=== PATIENT | female | born 1970 | race Caucasian/White ===

== ENCOUNTER → 2017-04-29 | Outpatient (CLI) | payer SELFPAY ==
[2016-09-19 08:38] VITALS: BMI 29.1
[~2017-04-29] MED LIST: ALUM PO; ATOR20TA22 PO; ATOR40TA24 PO; BACDS PO; CAR200 PO; CARB-82 PO; CARB-91 PO; CARB400T8 PO; CIPR-214 PO; CYC10 PO; CYCL10TA29 PO; DIA10 PO; DIPH-1 PO; DIPHENHYDR PO; DOCU-416 PO; ESCI10TA8 PO; ESTR0.9T14 PO; ESTR1.2525 PO; FENO145T36 PO; FLU45SYR25 IM ONLY; FLU60SYR30 IM ONLY; FLUC100T35 PO; FLUD0.1T12 PO; FOLI-68 PO; FOLTX PO; GABA-547 PO; GABA-583 PO; HYDR-3629 PO; HYDR-385 PO; HYDR2TAB42 PO; IBU600 PO; KET10 PO; KETO10TA PO; LEVO1CAP3 PO; LID5T TP; LIDOCAINE PO; LOR1 PO; LOR5 PO; MAGN100T PO; MAGN400T10 PO; MAGN400T36 PO; MAGN500C10 PO; METH4TAB66 PO; METO-231 PO; METO-253 PO; METO-257 PO; METO-733 PO; METO25TA23 PO; NEUROTIN; NYST100016 PO; NYST100040 PO; OMEP-114 PO; ONDA4TAB PO; ONDA4TAB97 PO; OXYC-373 PO; OXYC-865 PO; OXYC1TAB54 PO; PER PO; PHENA100 PO; POLY17PO25 PO; POTA-23 PO; POTA10CA40 PO; POTA20PA10 PO; POTA20TA85 PO; POTA20TA94 PO; PRE50 PO; PRED-314 PO; PRED20TA6 PO; PROM-110 PO; SODCTAB PO; VAR05PT PO; [UNRECOGNIZED DRUG - CODE] PO; [UNRECOGNIZED DRUG - OTHER] PO; [UNRECOGNIZED DRUG - REMARK]; [UNRECOGNIZED DRUG - REMARK]; [UNRECOGNIZED DRUG - REMARK]
[2017-04-29 11:54] LABS: PLATELET COUNT, AUTOMATED 327 K/uL (150-450)
--- NOTE | 2017-04-29 12:37 | RADIOLOGY IMAGING REPORT ---
FACILITY: [facility] - [place] PATIENT NAME: Viktoria Griffin : 1970 MR: [id number] V: [id number] EXAM DATE: ORDERING PHYSICIAN: LINA ROGERS TECHNOLOGIST: Location: [facility] Patient: Viktoria Griffin : 1970 Visit/Account:[id number] Date of Sevice: 04/29/2017 Exam type: KUB SINGLE VIEW ABDOMEN History: constipation Comparison: 09/18/2016. Findings: The bowel gas pattern is notable for mild constipation with stool noted in the descending colon. No definite bowel obstruction or fecal impaction. The osseous structures demonstrate postoperative changes from fusion of L4-S1 without hardware compli cation. Calcifications in the deep pelvis may represent phleboliths. IMPRESSION: 1. Mild constipation but no definite bowel obstruction or free air. Report Dictated By: Neno Colin MD at 04/29/2017 12:32 PM Report E-Signed By: Neno Colin MD at 04/29/2017 12:34 PM WSN:[id number]
== END ==
LOC: LAB 11:27
PROVIDERS: ATTEND Internal Medicine
DX: K59.00 Constipation, unspecified (principal); E87.1 Hypo-osmolality and hyponatremia; E83.42 Hypomagnesemia; E87.6 Hypokalemia; R29.898 Other symptoms and signs involving the musculoskeletal system; R79.89 Other specified abnormal findings of blood chemistry
CPT/HCPCS: 36415; 74018; 82040; 82247; 82310; 82374; 82435; 82565; 82728; 82947; 83540; 83550; 83735; 84075; 84132; 84155; 84295; 84443; 84450; 84460; 84520; 85025; 85651; 86140

== ENCOUNTER 2017-08-04 05:42 | Emergency (ER) | payer SELFPAY ==
[2016-09-19 08:38] VITALS: Wt 69.9 kg
--- NOTE | 2017-08-04 05:46 | ER Report ---
History and Physical Time Seen By MD: 05:45 (BOYD SINHA DO) HPI/ROS CHIEF COMPLAINT: Abdominal bloating HISTORY OF PRESENT ILLNESS: 47-year-old female with a known history of gastroparesis and chronic GI problems ate out last night. Patient states she had coucous and a salad which she is normally advised not to have by her GI specialist. Patient notes abdominal bloating and cramping pain radiating to both flanks throughout the night. She's been unable to sleep. She did have some vomiting. She did Zofran and the vomiting has resolved for several hours, but her abdominal pain and bloating continued to worsen. She has history of multiple abdominal surgeries. She's never had a bowel obstruction before. REVIEW OF SYSTEMS: Respiratory: No cough, no dyspnea. Cardiovascular: No chest pain, no palpitations. Gastrointestinal: As above Musculoskeletal: No back pain. (BOYD SINHA DO) Allergies: Coded Allergies: codeine (Verified Adverse Reaction, Severe, VIOLENTLY ILL, 08/04/17) Home Meds Active Scripts Ondansetron Hcl (ZOFRAN) 4 Mg Tablet, 4 MG PO Q8H for Nausea, #15 TAB 0 Refills Prov:JEET ALVARES MD 08/04/17 Dicyclomine Hcl (DICYCLOMINE HCL) 20 Mg Tablet, 20 MG PO QID for cramping, #30 TAB 0 Refills Prov:JEET ALVARES MD 08/04/17 Gabapentin (GABAPENTIN) 100 Mg Capsule, 100 MG PO BID, #540 CAPSULE 4 Refills 1 twice a day x 3 days 2 twice a day x 3 days Than 3 twice a day Prov:LINA ROGERS MD 05/13/17 Polyethylene Glycol 3350 (MIRALAX) 17 Gm Powd.pack, 17 GM PO QDAY, #30 PKT 3 Refills Prov:LINA ROGERS MD 04/29/17 Sodium Chloride (SODIUM CHLORIDE) 1 Gm Tab, 2 GM PO QDAY, #60 TAB 6 Refills Prov:LINA ROGERS MD 04/29/17 Potassium Chloride (POTASSIUM CHLORIDE) 10 Meq Capsule.er, 10 MEQ PO QODAY, #30 TAB 3 Refills Prov:LINA ROGERS MD 04/29/17 Magnesium Oxide (MAGNESIUM) 500 Mg Capsule, 1 CAP PO BID, #60 CAPSULE 3 Refills Prov:LINA ROGERS MD 04/29/17 Promethazine Hcl (PROMETHAZINE HCL) 25 Mg Tablet, 25 MG PO Q8H Y for nausea, # 30 TAB Prov:LINA ROGERS MD 04/29/17 Reported Medications Docusate Sodium (COLACE) 100 Mg Capsule, 100 MG PO, CAPSULE 08/04/17 Omeprazole (PRILOSEC) 20 Mg Capsule.dr, 1 TAB PO BID TAKE ONE TABLET BY MOUTH TWICE A DAY 10/05/13 Discontinued Scripts Carbamazepine (CARBAMAZEPINE) 200 Mg Tablet, 200 MG PO QDAY, #90 TAB 6 Refills Prov:LINA ROGERS MD 04/29/17 Folic Acid/Cyanocob/Pyridoxine (FOLBEE TABLET) 1 Each Tab, 1 EACH PO QDAY, #30 TAB Prov:JIN COLEMAN MD 09/21/16 Past Medical/Surgical History Past Medical History Neurologic: Reports hx of: other neurologic history (trigeminal neuralgia) Cardiovascular: Reports hx of: hyperlipidemia hypertension hypertriglyceridemia Gastrointestinal: Reports hx of: GERD other GI history (stomach ulcers 09/2013) Past Surgical History HEENT: Reports hx of: tonsillectomy (1975) other throat surgery (adenoidectomy 1975) Gastrointestinal: Reports hx of: appendectomy (1991) cholecystectomy (1999) hernia repair (1997) Gynecologic: Reports hx of: hysterectomy (2003-for uterine prolapse and ovarian cysts) Breast: Reports hx of: other breast surgery (breast cancer) Musculoskeletal: Reports hx of: spinal surgery (lumbar fusion 2010) (BOYD SINHA DO) Reviewed Nurses Notes: Yes Old Medical Records Reviewed: Yes (BOYD SINHA DO) Hx Smoking: Yes (4-5CIGS/DAY FOR 30 YRS) Smoking Status: Current: Every Day Smoker, Light Tobacco Smoker Hx Substance Use Disorder: No Hx Alcohol Use: Yes (Rare) (BOYD SINHA DO) Constitutional Vital Sign - Last 24 Hours 08/04/17 08/04/17 08/04/17 08/04/17 05:47 05:50 05:56 06:00 Temp 98.0 Pulse 94 Resp 18 B/P (MAP) 146/120 146/120 (129) 141/110 (120) 140/101 (114) Pulse Ox 90 O2 Delivery Room Air 6/08/04/17 08/04/17 08/04/17 06:12 06:30 06:42 07:11 Pulse 85 80 B/P (MAP) 144/102 (116) 142/92 (109) Pulse Ox 91 94 08/04/17 08/04/17 08/04/17 08/04/17 07:12 07:17 07:22 07:27 Pulse 82 84 81 76 Pulse Ox 95 95 87 93 08/04/17 08/04/17 08/04/17 08/04/17 07:30 07:32 07:37 07:42 Pulse 77 84 82 B/P (MAP) 134/99 (111) Pulse Ox 93 93 96 08/04/17 08/04/17 08/04/17 07:46 07:47 07:52 Pulse ? B/P (MAP) 145/101 (116) (JEET ALVARES MD) Physical Exam General Appearance: The patient is alert, has no immediate need for airway protection and no current signs of toxicity. Vital signs stable, afebrile, pulse ox normal, moderate distress HEENT: Pupils equal and round no injection. Oropharynx without redness or exudate, mucous. Membranes are moist Respiratory: Chest is non tender, lungs are clear to auscultation. Cardiac: regular rate and rhythm Gastrointestinal: Abdomen is firm, mildly distended and non tender, no masses, bowel sounds normal. Musculoskeletal: Neck: Neck is supple and non tender. Extremities have full range of motion and are non tender. Skin: No rashes or lesions. DIFFERENTIAL DIAGNOSIS: After history and physical exam differential diagnosis was considered for abdominal pain including but not limited to appendicitis, cholecystitis, gastritis, bowel obstruction, gastroparesis, constipation and urinary tract infection. (BOYD SINHA DO) Medical Decision Making Data Points Result Diagram: 08/04/17 0556 08/04/17 0556 Laboratory Hematology Test 08/04/17 05:49 08/04/17 05:56 Urine Color Yellow Urine Clarity Clear Urine pH 7.0 pH (4.8-9.5) Urine Specific Nickerson 1.014 Urine Protein Negative mg/dL (NEGATIVE) Urine Glucose (UA) Negative mg/dL (NEGATIVE) Urine Ketones Negative mg/dL (NEGATIVE) Urine Blood Negative (NEGATIVE) Urine Nitrite Negative (NEGATIVE) Urine Bilirubin Negative (NEGATIVE) Urine Urobilinogen Negative mg/dL (0.2-1.9) Urine Leukocyte Esterase Trace (NEGATIVE) Urine RBC 1 /HPF (0-2/HPF) Urine WBC 18 /HPF (0-5/HPF) Urine Squamous Epithelial Cells Many /LPF (</=FEW) Urine Bacteria Moderate /HPF (NONE-FEW) Urine Mucus None /HPF (NONE-FEW) Red Blood Count 5.25 M/uL (4.17-5.56) Mean Corpuscular Volume 90.2 fL (80.0-96.0) Mean Corpuscular Hemoglobin 30.9 pg (26.0-33.0) Mean Corpuscular Hemoglobin Concent 34.3 g/dL (32.0-36.0) Red Cell Distribution Width 19.3 % (11.5-14.5) Mean Platelet Volume 8.5 fL (7.2-11.1) Neutrophils (%) (Auto) 65.8 % (39.4-72.5) Lymphocytes (%) (Auto) 26.2 % (17.6-49.6) Monocytes (%) (Auto) 5.3 % (4.1-12.4) Eosinophils (%) (Auto) 1.4 % (0.4-6.7) Basophils (%) (Auto) 1.3 % (0.3-1.4) Nucleated RBC Relative Count (auto) 0.1 /100WBC Neutrophils # (Auto) 5.7 K/uL (2.0-7.4) Lymphocytes # (Auto) 2.3 K/uL (1.3-3.6) Monocytes # (Auto) 0.5 K/uL (0.3-1.0) Eosinophils # (Auto) 0.1 K/uL (0.0-0.5) Basophils # (Auto) 0.1 K/uL (0.0-0.1) Nucleated RBC Absolute Count (auto) 0.01 K/uL Peripheral Blood Smear No Y/N Sodium Level 140 mmol/L (137-145) Potassium Level 3.5 mmol/L (3.5-5.0) Chloride Level 97 mmol/L (98-107) Carbon Dioxide Level 31 mmol/L (22-31) Blood Urea Nitrogen 9 mg/dl (7-18) Creatinine 0.60 mg/dl (0.52-1.04) Glomerular Filtration Rate Calc > 60.0 Random Glucose 105 mg/dl (75-110) Calcium Level 9.4 mg/dl (8.4-10.2) Total Bilirubin 0.9 mg/dl (0.2-1.3) Aspartate Amino Transf (AST/SGOT) 73 U/L (0-35) Alanine Aminotransferase (ALT/SGPT) 50 U/L (0-56) Alkaline Phosphatase 186 U/L (0-126) Total Protein 8.4 g/dl (6.3-8.2) Albumin 4.3 g/dl (3.5-5.0) Amylase Level 73 U/L (0-110) Lipase 23 U/L (23-300) Chemistry Test 08/04/17 05:49 08/04/17 05:56 Urine Color Yellow Urine Clarity Clear Urine pH 7.0 pH (4.8-9.5) Urine Specific Nickerson 1.014 Urine Protein Negative mg/dL (NEGATIVE) Urine Glucose (UA) Negative mg/dL (NEGATIVE) Urine Ketones Negative mg/dL (NEGATIVE) Urine Blood Negative (NEGATIVE) Urine Nitrite Negative (NEGATIVE) Urine Bilirubin Negative (NEGATIVE) Urine Urobilinogen Negative mg/dL (0.2-1.9) Urine Leukocyte Esterase Trace (NEGATIVE) Urine RBC 1 /HPF (0-2/HPF) Urine WBC 18 /HPF (0-5/HPF) Urine Squamous Epithelial Cells Many /LPF (</=FEW) Urine Bacteria Moderate /HPF (NONE-FEW) Urine Mucus None /HPF (NONE-FEW) White Blood Count 8.7 k/uL (4.5-11.0) Red Blood Count 5.25 M/uL (4.17-5.56) Hemoglobin 16.2 g/dL (12.0-16.0) Hematocrit 47.3 % (34.0-47.0) Mean Corpuscular Volume 90.2 fL (80.0-96.0) Mean Corpuscular Hemoglobin 30.9 pg (26.0-33.0) Mean Corpuscular Hemoglobin Concent 34.3 g/dL (32.0-36.0) Red Cell Distribution Width 19.3 % (11.5-14.5) Platelet Count 165 K/uL (150-450) Mean Platelet Volume 8.5 fL (7.2-11.1) Neutrophils (%) (Auto) 65.8 % (39.4-72.5) Lymphocytes (%) (Auto) 26.2 % (17.6-49.6) Monocytes (%) (Auto) 5.3 % (4.1-12.4) Eosinophils (%) (Auto) 1.4 % (0.4-6.7) Basophils (%) (Auto) 1.3 % (0.3-1.4) Nucleated RBC Relative Count (auto) 0.1 /100WBC Neutrophils # (Auto) 5.7 K/uL (2.0-7.4) Lymphocytes # (Auto) 2.3 K/uL (1.3-3.6) Monocytes # (Auto) 0.5 K/uL (0.3-1.0) Eosinophils # (Auto) 0.1 K/uL (0.0-0.5) Basophils # (Auto) 0.1 K/uL (0.0-0.1) Nucleated RBC Absolute Count (auto) 0.01 K/uL Peripheral Blood Smear No Y/N Glomerular Filtration Rate Calc > 60.0 Calcium Level 9.4 mg/dl (8.4-10.2) Total Bilirubin 0.9 mg/dl (0.2-1.3) Aspartate Amino Transf (AST/SGOT) 73 U/L (0-35) Alanine Aminotransferase (ALT/SGPT) 50 U/L (0-56) Alkaline Phosphatase 186 U/L (0-126) Total Protein 8.4 g/dl (6.3-8.2) Albumin 4.3 g/dl (3.5-5.0) Amylase Level 73 U/L (0-110) Lipase 23 U/L (23-300) Urinalysis Test 08/04/17 05:49 Urine Color Yellow Urine Clarity Clear Urine pH 7.0 pH (4.8-9.5) Urine Specific Nickerson 1.014 Urine Protein Negative mg/dL (NEGATIVE) Urine Glucose (UA) Negative mg/dL (NEGATIVE) Urine Ketones Negative mg/dL (NEGATIVE) Urine Blood Negative (NEGATIVE) Urine Nitrite Negative (NEGATIVE) Urine Bilirubin Negative (NEGATIVE) Urine Urobilinogen Negative mg/dL (0.2-1.9) Urine Leukocyte Esterase Trace (NEGATIVE) Urine RBC 1 /HPF (0-2/HPF) Urine WBC 18 /HPF (0-5/HPF) Urine Squamous Epithelial Cells Many /LPF (</=FEW) Urine Bacteria Moderate /HPF (NONE-FEW) Urine Mucus None /HPF (NONE-FEW) (JEET ALVARES MD) EKG/Imaging Imaging X-ray: Abdomen three-view was obtained. I viewed the images myself on the PACS system. My interpretation of the images is: Clear lung spangler, no free air under the diaphragm, dilated loops of small bowel in left abdomen with air- fluid levels. The radiologist interpretation had no clinically significant variation from this interpretation. Results: CT scan of the [head] was obtained. The results of the study are [normal]. The study was read by the radiologist. I viewed the images myself on the PACS system. (BOYD SINHA DO) Imaging FACILITY: [facility] PATIENT NAME: Viktoria Griffin : 1970 MR: [id number] V: [id number] EXAM DATE: ORDERING PHYSICIAN: BOYD SINHA TECHNOLOGIST: Location: [facility] Patient: Viktoria Griffin : 1970 Visit/Account:[id number] Date of Sevice: 08/04/2017 ABDOMEN/PELVIS WITH CONTRAST HISTORY: abd pain ? sbo on plain films TECHNIQUE: CT abdomen and pelvis 75 cc of Isovue 370 IV. One of the following dose optimization techniques was utilized in the performance of this exam: automated exposure control; adjustment of the mA and/or kV according to the patient's size; or use of an iterative reconstruction technique. Specific details can be referenced in the facility's radiology CT exam operational policy. COMPARISON: CT abdomen and pelvis 04/29/2012. FINDINGS: Liver/gallbladder: Liver demonstrates normal enhancement. There are changes from a cholecystectomy. Spleen: Normal. Adrenals: Normal. Pancreas: Normal enhancement without evidence of mass. Kidneys/: The right and left kidney demonstrate normal enhancement without evidence of hydronephrosis or mass. Both ureters are normal. Pelvis: Urinary bladder is normal. There are changes from a hysterectomy. GI: Nondilated loops of small bowel are seen. There are several fluid-filled loops of small bowel in the left upper quadrant, with gas that was seen on the prior abdomen radiograph, however these aren't not pathologically distended. Colon is normal. Stomach is normal. Vessels/spaces/nodes: Negative. Bones/soft tissues: Surgical changes in the lumbar spine are seen. Visualized lung bases: Patchy groundglass attenuation is seen in both lung bases. IMPRESSION: 1. No evidence of small bowel obstruction. There are several loops of small bowel with fluid and air, which are not pathologically distended. 2. Patchy groundglass densities both lung bases. Differential diagnosis includes atelectasis and pneumonia. 3. Postoperative changes lumbar spine and changes from hysterectomy and cholecystectomy. Report Dictated By: Jose Skelton at 08/04/2017 7:22 AM Report E-Signed By: Jose Skelton at 08/04/2017 7:28 AM WSN:[id number] (JEET ALVARES MD) ED Course/Re-evaluation Clinical Indication for ER IV: Hydration, IV Access ED Course Patient was admitted to an examination room. H&P was done. The differential diagnoses was considered. On clinical examination. Patient has a distended abdomen with increasing pain since last evening. Patient has history of gastroparesis and chronic nausea. Her most recent internal medicine note from April of this year was very informative. Patient had diagnostic studies a three -way of the abdomen has some dilated loops of small bowel, suspicious for obstruction. A CT scan with contrast of the abdomen and pelvis was ordered. Her was turned over to Dr. Alvares at shift change. (BOYD SINHA DO) Re-evaluation 08/04/2017 7:27:05 am patient returned from CT scan results are still pending. She is complaining of some increased abdominal discomfort and nausea. I will re- dose fentanyl and Zofran at this time. Decision to Disposition Date: Aug 04, 2017 Decision to Disposition Time: 08:00 Turned Over I accepted care of patient from Dr. Boyd Sinha at 7 AM; please note in the history where Dr. Sinha is describing what the patient ate last night she had cous cous (not 2 screws) and a salad. (JEET ALVARES MD) Depart Departure Latest Vital Signs Vital Signs Date Time Temp Pulse Resp B/P (MAP) Pulse Ox O2 Delivery O2 Flow Rate FiO2 08/04/17 07:52 ??? 08/04/17 07:46 145/101 (116) 08/04/17 07:42 96 08/04/17 05:47 98.0 18 Room Air (JEET ALVARES MD) Impression: Primary Impression: Abdominal pain Condition: Improved Disposition: HOME OR SELF-CARE Referrals: LINA ROGERS MD (PCP) 2 Days if symptoms persist New Scripts Ondansetron Hcl (ZOFRAN) 4 Mg Tablet 4 MG PO Q8H for Nausea, #15 TAB 0 Refills Prov: JEET ALVARES MD 08/04/17 Dicyclomine Hcl (DICYCLOMINE HCL) 20 Mg Tablet 20 MG PO QID for cramping, #30 TAB 0 Refills Prov: JEET ALVARES MD 08/04/17 Patient Instructions: Abdominal Pain (ED) Additional Instructions: Take all your outpatient medications as directed. He should follow-up with her primary care physician in the next 24-48 hours if symptoms persist. You should return to the emergency department immediately if symptoms seem to be worsening or he develop fever or intractable vomiting or abdominal pain. You have a urine culture that is pending at this time. If the culture is positive we will call you to potentially start you on antibiotics for urinary tract infection. Problem Qualifiers Primary Impression: Abdominal pain Abdominal location: generalized Qualified Codes: R10.84 - Generalized abdominal pain BOYD SINHA DO Aug 04, 2017 05:46 JEET ALVARES MD Aug 04, 2017 07:03
[2017-08-04] MEDS ORDERED: fentaNYL CITR 100 MCG/2 ML AMP IVP ONE ×2 (05:55→07:30)
[2017-08-04] MEDS ORDERED: ONDANSETRON 4 MG/2 ML VIAL IVP ONE ×2 (05:55→07:30)
[2017-08-04] MEDS ORDERED: DOCU-416 PO (06:04)
[2017-08-04 06:05] LABS: PLATELET COUNT, AUTOMATED 165 K/uL (150-450)
--- NOTE | 2017-08-04 06:47 | RADIOLOGY IMAGING REPORT ---
FACILITY: [facility] PATIENT NAME: Viktoria Griffin : 1970 MR: [id number] V: [id number] EXAM DATE: ORDERING PHYSICIAN: BEN ENRIQUEZ TECHNOLOGIST: [facility] Patient: Viktoria Griffin : 1970 Visit/Account:[id number] Date of Sevice: 08/04/2017 ACUTE ABDOMEN SERIES 3 VIEW Indication: ABD PAIN Comparison: None. Findings: CHEST: Lungs are clear. Heart size and pulmonary vasculature are normal. ABDOMEN: Mildly dilated loops of small bowel are seen, with multiple air-fluid levels. There is no fr ee air. There are postoperative changes with lumbar spine hardware. IMPRESSION: 1. Clear lungs. 2. Findings consistent with mild small bowel obstruction. Report Dictated By: Jose Skelton at 08/04/2017 6:42 AM Report E-Signed By: Jose Skelton at 08/04/2017 6:43 AM WSN:[id number]
[2017-08-04] MEDS ORDERED: IOPAMIDOL 76% 75 ML INFUS BTL 75 ML ONE (06:53)
--- NOTE | 2017-08-04 07:32 | RADIOLOGY IMAGING REPORT ---
FACILITY: [facility] - [place] [place] PATIENT NAME: Viktoria Griffin : 1970 MR: [id number] V: [id number] EXAM DATE: ORDERING PHYSICIAN: BNE ENRIQUEZ TECHNOLOGIST: Location: [facility] Patient: Viktoria Griffin : 1970 Visit/Account:[id number] Date of Sevice: 08/04/2017 ABDOMEN/PELVIS WITH CONTRAST HISTORY: abd pain ? sbo on plain films TECHNIQUE: CT abdomen and pelvis 75 cc of Isovue 370 IV. One of the following dose optimization rudy hniques was utilized in the performance of this exam: automated exposure control; adjustment of the m A and/or kV according to the patient's size; or use of an iterative reconstruction technique. Specif ic details can be referenced in the facility's radiology CT exam operational policy. COMPARISON: CT abdomen and pelvis 04/29/2012. FINDINGS: Liver/gallbladder: Liver demonstrates normal enhancement. There are changes from a cholecystectomy. Spleen: Normal. Adrenals: Normal. Pancreas: Normal enhancement without evidence of mass. Kidneys/: The right and left kidney demonstrate normal enhancement without evidence of hydronephro sis or mass. Both ureters are normal. Pelvis: Urinary bladder is normal. There are changes from a hysterectomy. GI: Nondilated loops of small bowel are seen. There are several fluid-filled loops of small bowel in the left upper quadrant, with gas that was seen on the prior abdomen radiograph, however these aren' t not pathologically distended. Colon is normal. Stomach is normal. Vessels/spaces/nodes: Negative. Bones/soft tissues: Surgical changes in the lumbar spine are seen. Visualized lung bases: Patchy groundglass attenuation is seen in both lung bases. IMPRESSION: 1. No evidence of small bowel obstruction. There are several loops of small bowel with fluid and air, which are not pathologically distended. 2. Patchy groundglass densities both lung bases. Differential diagnosis includes atelectasis and pneu monia. 3. Postoperative changes lumbar spine and changes from hysterectomy and cholecystectomy. Report Dictated By: Jose Skelton at 08/04/2017 7:22 AM Report E-Signed By: Jose Skelton at 08/04/2017 7:28 AM WSN:[id number]
[2017-08-04] MEDS ORDERED: ONDA4TAB97 PO (07:40)
[2017-08-04] MEDS ORDERED: DICY20TA70 PO (07:40)
[2017-08-04 07:46] VITALS: BP 145/101
== END 2017-08-04 07:57 | disposition home or self-care (01) ==
LOC: ER 05:47
DX: R10.84 Generalized abdominal pain (principal); F17.210 Nicotine dependence, cigarettes, uncomplicated
CPT/HCPCS: 74022; 74177; 81001; 82150; 83690; 85025; 87077; 87088; 87186; 96374; 96375; 96376; 99284; J2405; J3010; Q9967; 82040; 82247; 82310; 82374; 82435; 82565; 82947; 84075; 84132; 84155; 84295; 84450; 84460; 84520

== ENCOUNTER → 2017-09-09 | Outpatient (CLI) | payer OTHER ==
[2016-09-19 08:38] VITALS: BMI 29.1
[~2017-09-09] MED LIST changes: +DICY20TA70 PO; +GABA-549 PO
--- NOTE | 2017-09-09 15:09 | RADIOLOGY IMAGING REPORT ---
FACILITY: [facility] [place] PATIENT NAME: Viktoria Griffin : 1970 MR: [id number] V: [id number] EXAM DATE: ORDERING PHYSICIAN: LINA ROGERS TECHNOLOGIST: Location: [facility] [place] Patient: Viktoria Griffin : 1970 Visit/Account:[id number] Date of Sevice: 09/09/2017 EXAMINATION: MRI thoracic spine without IV contrast MRI thoracic spine with IV contrast HISTORY: Weakness of both lower extremities, thoracic spine pain, chronic inflammatory demyelinatin g polyneuropathy. COMPARISON: Thoracic spine radiographs from 05/30/2016. TECHNIQUE: Multi-planar, multi-sequence thoracic spine MRI was performed without and after IV contra st. CONTRAST: 15 mL of IV MultiHance gadolinium. FINDINGS: Alignment: Negative. Vertebral marrow signal: Mild degenerative endplate changes and a few scattered small Schmorl's nodes . Paravertebral soft tissues: Negative. Thoracic cord: No focal cord signal abnormality or lesion. Conus: Negative, terminates at the L1 level. Enhancement: No abnormal enhancement. Disc spaces: T3-4: Minimal disc bulge without significant central canal or foraminal stenosis. T6-7: Small central disc protrusion. No significant central canal or foraminal stenosis. T12-L1: Mild concentric disc bulge without significant central canal or foraminal stenosis. IMPRESSION: 1. No thoracic cord lesion or abnormal enhancement. 2. 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 Report Dictated By: Nany Sagastume MD at 09/09/2017 3:00 PM Report E-Signed By: Nany Sagastume MD at 09/09/2017 3:05 PM WSN:[id number]
--- NOTE | 2017-09-09 16:13 | RADIOLOGY IMAGING REPORT ---
FACILITY: [facility] - [place] PATIENT NAME: Viktoria Griffin : 1970 MR: [id number] V: [id number] EXAM DATE: ORDERING PHYSICIAN: LINA ROGERS TECHNOLOGIST: Location: [facility] Patient: Viktoria Griffin : 1970 Visit/Account:[id number] Date of Sevice: 09/09/2017 EXAMINATION: C SPINE W W/O CONTRAST INDICATION: Lower extremity weakness COMPARISON: None available TECHNIQUE: Multiplane MR imaging was performed through the cervical spine without and with contrast. 15 ml multihance injected. FINDINGS: Vertebral body height: Normal Cord signal: Normal Marrow signal: Mild degenerative edema surrounds the C6-7 disc space. Prevertebral and paraspinal soft tissues: Normal Enhancement: Degenerative marrow enhancement surrounding the C6-7 disc space. Degenerative right C2-3 facet joint synovial enhancement. C2-3: Normal C3-4: Minimal disc bulge, no canal narrowing, mild bilateral foraminal narrowing. C4-5: Minimal disc bulge, no canal narrowing, mild bilateral foraminal narrowing. C5-6: Small disc protrusion contacts the anterior aspect of the cord with resultant slight cord defor mity. Mild to moderate canal narrowing. Moderate bilateral foraminal narrowing. C6-7: Moderate disc space degeneration, small disc osteophyte complex, moderate canal narrowing, apolinar re right and moderate to severe left foraminal narrowing. C7-T1: Normal IMPRESSION: 1. No acute finding. 2. No cord signal abnormality or cord pathologic enhancement. 3. Mild to moderate C5-6 and moderate C6-7 canal narrowing. 4. Multilevel foraminal narrowing, see level by level comments above. Report Dictated By: Francis Russell MD at 09/09/2017 4:02 PM Report E-Signed By: Francis Russell MD at 09/09/2017 4:08 PM WSN:[email or web address]
== END ==
LOC: MRI 02:05
PROVIDERS: ATTEND Internal Medicine
DX: M48.02 Spinal stenosis, cervical region (principal); M51.34 Other intervertebral disc degeneration, thoracic region
CPT/HCPCS: 36415; 72156; 72157; 82040; 82247; 82310; 82374; 82435; 82565; 82947; 84075; 84132; 84155; 84295; 84450; 84460; 84520

== ENCOUNTER → 2017-09-22 | Outpatient (CLI) | payer OTHER ==
[2016-09-19 08:38] VITALS: BMI 29.1
[~2017-09-22] MED LIST changes: -POTA20PA10 PO; +POTA20PA31 PO; +SULF-198 PO
--- NOTE | 2017-09-22 16:13 | RADIOLOGY IMAGING REPORT ---
FACILITY: [facility] - [place] PATIENT NAME: Viktoria Griffin : 1970 MR: [id number] V: [id number] EXAM DATE: ORDERING PHYSICIAN: LINA ROGERS TECHNOLOGIST: Location: [facility] [place] Patient: Viktoria Griffin : 1970 Visit/Account:[id number] Date of Sevice: 09/22/2017 Exam type: ACUTE ABDOMEN SERIES 3 VIEW History: Abdomen pain and bloating Comparison: August 04, 2017. Findings: The lungs are free of acute effusions, infiltrates or edema. Cardiac silhouette is normal There are old bilateral rib fractures. Small air-fluid levels are seen in nondilated small bowel which does not appear to represent an obstr uctive gas pattern. There is no free air beneath hemidiaphragms. No gross evidence of organomegaly. There are postsurgical changes lower lumbar spine. IMPRESSION: 1. No evidence of pulmonary consolidation Nonspecific bowel gas pattern Report Dictated By: Josefa Lo MD at 09/22/2017 4:06 PM Report E-Signed By: Josefa Lo MD at 09/22/2017 4:09 PM WSN:[email or web address]
[2017-09-22 16:22] LABS: PLATELET COUNT, AUTOMATED 186 K/uL (150-450)
== END ==
LOC: LAB 15:17
PROVIDERS: ATTEND Internal Medicine
DX: R10.9 Unspecified abdominal pain (principal); B96.20 Unspecified Escherichia coli [E. coli] as the cause of diseases classified elsewhere
CPT/HCPCS: 36415; 74022; 81001; 82040; 82150; 82247; 82310; 82374; 82435; 82565; 82947; 83690; 83735; 84075; 84132; 84155; 84295; 84443; 84450; 84460; 84520; 85025; 87077; 87088; 87186

== ENCOUNTER 2017-10-03 07:28 | Day surgery (SDC) | payer OTHER ==
[2016-09-19 08:38] VITALS: BMI 29.1
[2017-10-03] MEDS ORDERED: LIDOCAINE MPF 1% 5 ML VIAL ONE (10:20)
[2017-10-03] MEDS ORDERED: NS(*) 0.9% 10 ML VIAL 0 ML ONE (10:20)
[2017-10-03 11:33] VITALS: BP 130/93
[2017-10-03 11:45] VITALS: BP 110/93
[2017-10-03 12:00] VITALS: BP 104/86
[2017-10-03 12:30] VITALS: BP 131/98
--- NOTE | 2017-10-03 16:50 | RADIOLOGY IMAGING REPORT ---
FACILITY: [facility] - [place] PATIENT NAME: Viktoria Griffin : 1970 MR: [id number] V: [id number] EXAM DATE: ORDERING PHYSICIAN: BRADY DURANT TECHNOLOGIST: Location: [facility] Patient: Viktoria Griffin : 1970 Visit/Account:[id number] Date of Sevice: 10/03/2017 EXAMINATION: Fluoroscopically guided lumbar puncture 10/03/2017 10:00 AM HISTORY: Chronic inflammatory demyelinating polyneuropathy. Sensory disturbance. Gait disturbance. COMPARISON: There is a previous spinal imaging which I reviewed prior to the procedure. FLUOROSCOPY TIME: 0.6 minutes DOSE: DAP was 76.15 uGy/m2 FINDINGS: The patient has had previous L4-S1 fusion. I initially chose the L3-4 level for access. The back was prepped with ChloraPrep. Sterile draping was applied. Fluoroscopy was utilized to myriam the skin entry and lidocaine was utilized for local anesthesia. Using intermittent fluoroscopy a ad vanced the needle down towards the interlaminar space on the left at L2-3. Although is uncertain why , I could not proceed into the spinal canal despite multiple manipulations of the needle. I then re-marked at the L1-2 level. Previous imaging had shown that this would be below the tip of t he patient's conus. Additional lidocaine was administered. A 22-gauge spinal needle was then easily advanced through the interlaminar space into the central spinal canal. CSF returned without difficu lty. The first tube had slightly blood-tinged fluid with a total of about 1.5 mL. Additional 2 mL's for each of the second through fourth tubes was collected and this was clear fluid. The needle was then removed. No immediate complications were noted. IMPRESSION: Technically successful lumbar puncture performed with fluoroscopy as above. CSF was sent for laborat ory evaluation. Report Dictated By: Jose Sanchez MD at 10/03/2017 4:42 PM Report E-Signed By: Jose Sanchez MD at 10/03/2017 4:46 PM WSN:[email or web address]
== END 2017-10-03 13:35 | disposition home or self-care (01) ==
LOC: OR 07:28
PROVIDERS: ATTEND Psychiatry & Neurology Neurology
DX: R20.9 Unspecified disturbances of skin sensation (principal); R26.9 Unspecified abnormalities of gait and mobility; J84.9 Interstitial pulmonary disease, unspecified; G61.81 Chronic inflammatory demyelinating polyneuritis
CPT/HCPCS: 36415; 62270; 77002; 82009; 82945; 84157; 89050; J2001

== ENCOUNTER → 2017-11-19 | Outpatient (CLI) | payer OTHER ==
[2016-09-19 08:38] VITALS: BMI 29.1
[~2017-11-19] MED LIST changes: +SODI100037 PO; -[UNRECOGNIZED DRUG - CODE] PO
[2017-11-19 11:55] LABS: PLATELET COUNT, AUTOMATED 199 K/uL (150-450)
--- NOTE | 2017-11-19 14:00 | RADIOLOGY IMAGING REPORT ---
FACILITY: [facility] PATIENT NAME: Viktoria Griffin : 1970 MR: [id number] V: [id number] EXAM DATE: ORDERING PHYSICIAN: LINA ROGERS TECHNOLOGIST: Location: [facility] Patient: Viktoria Griffin : 1970 Visit/Account:[id number] Date of Sevice: 11/19/2017 CHEST PA AND LAT Provided history: cough Additional pertinent history: Elevated liver function tests, GERD, hyponatremia, smoker Two views obtained COMPARISON STUDIES: 10/04/16 FINDINGS: Support lines and tubes: None. Lungs / pleura / duke: No infiltrate, effusion or pneumothorax. Heart / mediastinum /vessels: Negative Nodules / masses: None significant Bones / body wall: Several old remodeling upper left rib fractures. No acute fracture. Focal scler osis projects over the confluence of left humeral head and lower glenoid unchanged from prior. Anoth er focus on previous lateral to this is not included in today's [id number]. Lower neck / Upper abdomen: Negative IMPRESSION: No acute or significant chronic cardiopulmonary disease. Report Dictated By: León Carreon MD at 11/19/2017 1:53 PM Report E-Signed By: León Carreon MD at 11/19/2017 1:56 PM WSN:[email or web address]
== END ==
LOC: LAB 11:24
PROVIDERS: ATTEND Internal Medicine
DX: G61.81 Chronic inflammatory demyelinating polyneuritis (principal); R79.89 Other specified abnormal findings of blood chemistry; K21.9 Gastro-esophageal reflux disease without esophagitis; E87.1 Hypo-osmolality and hyponatremia; R05 Cough; B96.20 Unspecified Escherichia coli [E. coli] as the cause of diseases classified elsewhere
CPT/HCPCS: 36415; 71046; 81001; 82040; 82247; 82310; 82374; 82435; 82565; 82947; 83735; 84075; 84132; 84155; 84295; 84443; 84450; 84460; 84520; 85025; 87077; 87088; 87186

== ENCOUNTER → 2017-12-29 | Outpatient (CLI) | payer OTHER ==
[2016-09-19 08:38] VITALS: BMI 29.1
== END ==
LOC: RESP 06:47
PROVIDERS: ATTEND Internal Medicine
DX: G47.33 Obstructive sleep apnea (adult) (pediatric) (principal)

== ENCOUNTER 2018-01-06 08:00 | Outpatient (RCR) | payer OTHER ==
[2016-09-19 08:38] VITALS: Ht 158.8 cm; Wt 68.8 kg
[2017-10-20 11:29] LABS: PLATELET COUNT, AUTOMATED 212 K/uL (150-450)
[2017-10-20 12:00] VITALS: BP 103/85
[2017-10-20] MEDS: diphenhydrAMINE 50 MG/ML VIAL IVP PRN (12:27)
[2017-10-20] MEDS: [UNRECOGNIZED DRUG - MIXTURE] IV PRN (12:49)
[2017-10-20 16:12] VITALS: BP 97/73
[2017-10-21 10:48] VITALS: BP 105/80
[2017-10-21] MEDS: diphenhydrAMINE 50 MG/ML VIAL IVP PRN (10:52)
[2017-10-21] MEDS: [UNRECOGNIZED DRUG - MIXTURE] IV PRN (11:19)
[2017-10-21 15:12] VITALS: BP 105/81
[2017-10-22 10:53] VITALS: BP 114/85
[2017-10-22] MEDS: NS(*) 0.9% 100 ML BAG 100 ML IVPB PRN (10:58)
[2017-10-22] MEDS: diphenhydrAMINE 50 MG/ML VIAL IVP PRN (11:01)
[2017-10-22] MEDS: [UNRECOGNIZED DRUG - MIXTURE] IV PRN (11:37)
[2017-10-22 14:04] VITALS: BP 117/74
[2017-10-23 11:04] VITALS: BP 116/87
[2017-10-23] MEDS: diphenhydrAMINE 50 MG/ML VIAL IVP PRN (11:14)
[2017-10-23] MEDS: [UNRECOGNIZED DRUG - MIXTURE] IV PRN (11:42)
[2017-10-24 08:55] VITALS: BP 122/95
[2017-10-24] MEDS: diphenhydrAMINE 50 MG/ML VIAL IVP PRN (09:01)
[2017-10-24] MEDS: NS(*) 0.9% 100 ML BAG 100 ML IVPB PRN (09:01)
[2017-12-09 09:06] VITALS: BP 110/95
[2017-12-09] MEDS: NS(*) 0.9% 100 ML BAG 100 ML IVPB PRN (09:34)
[2017-12-09] MEDS: diphenhydrAMINE 50 MG/ML VIAL IVP PRN (09:34)
[2017-12-09] MEDS: [UNRECOGNIZED DRUG - MIXTURE] IV PRN (10:06)
[2017-12-09 13:22] VITALS: BP 119/97
[~2018-01-06] VITALS: Ht 158.8 cm; Wt 68.8 kg
[~2018-01-06 08:00] MED LIST changes: +DEXTROSE 5%(*) 100 ML BAG 100 ML IVPB PRN; +IMMU GLOB(IGG) 20GR/200ML VIAL 200 ML IV PRN; +LIDOCAINE/SOD BICARB 8.4% SYR ID PRN; +NS(*) 0.9% 500 ML BAG 500 ML IV PRN; +ONDANSETRON 4 MG/2 ML VIAL IVP PRN; +[UNRECOGNIZED DRUG - MIXTURE] IV ONE; +[UNRECOGNIZED DRUG - MIXTURE] IV PRN; +diphenhydrAMINE 50 MG/ML VIAL IVP PRN
[2018-01-06 08:06] VITALS: BP 109/74
[2018-01-06] MEDS: diphenhydrAMINE 50 MG/ML VIAL IVP PRN (08:20)
[2018-01-06] MEDS: NS(*) 0.9% 100 ML BAG 100 ML IVPB PRN (08:20)
[2018-01-06] MEDS ORDERED: [UNRECOGNIZED DRUG - MIXTURE] IV PRN (08:25)
[2018-01-06] MEDS ORDERED: [UNRECOGNIZED DRUG - MIXTURE] IV ONE (08:25)
[2018-01-06] MEDS: [UNRECOGNIZED DRUG - MIXTURE] IV PRN (08:46)
[2018-01-06 13:35] VITALS: BP_SYST 107; BP_SYST 108; BP_DIAS 61; BP_DIAS 89
== END 2018-01-18 ==
LOC: SPU 08:00
PROVIDERS: ATTEND Psychiatry & Neurology Neurology
DX: R20.9 Unspecified disturbances of skin sensation (principal); R26.9 Unspecified abnormalities of gait and mobility; J84.9 Interstitial pulmonary disease, unspecified; G61.81 Chronic inflammatory demyelinating polyneuritis; G50.0 Trigeminal neuralgia
CPT/HCPCS: 82784; 85025; 96365; 96366; 96375; J1200; J1459; J7040; J7050; 82040; 82247; 82310; 82374; 82435; 82565; 82947; 84075; 84132; 84155; 84295; 84450; 84460; 84520

== ENCOUNTER → 2018-01-28 | Outpatient (CLI) | payer OTHER ==
[2016-09-19 08:38] VITALS: BMI 29.1
[~2018-01-28] MED LIST changes: -DEXTROSE 5%(*) 100 ML BAG 100 ML IVPB PRN; -IMMU GLOB(IGG) 20GR/200ML VIAL 200 ML IV PRN; -LIDOCAINE/SOD BICARB 8.4% SYR ID PRN; -NS(*) 0.9% 500 ML BAG 500 ML IV PRN; -ONDANSETRON 4 MG/2 ML VIAL IVP PRN; +TERB30CR11 TD; -[UNRECOGNIZED DRUG - MIXTURE] IV ONE; -[UNRECOGNIZED DRUG - MIXTURE] IV PRN; -diphenhydrAMINE 50 MG/ML VIAL IVP PRN
[2018-01-28 12:08] LABS: PLATELET COUNT, AUTOMATED 209 K/uL (150-450)
== END ==
LOC: LAB 11:42
PROVIDERS: ATTEND Internal Medicine
DX: R79.89 Other specified abnormal findings of blood chemistry (principal); G61.81 Chronic inflammatory demyelinating polyneuritis; E87.1 Hypo-osmolality and hyponatremia; E83.42 Hypomagnesemia
CPT/HCPCS: 36415; 82040; 82247; 82310; 82374; 82435; 82565; 82607; 82728; 82746; 82947; 83540; 83550; 83735; 84075; 84132; 84155; 84295; 84443; 84450; 84460; 84520; 85025

== ENCOUNTER 2018-02-27 14:18 | Emergency (ER) | payer OTHER ==
[2016-09-19 08:38] VITALS: Wt 65.8 kg
[2018-02-27] MEDS ORDERED: GABA-549 PO (14:31)
[2018-02-27] MEDS ORDERED: FOLI-68 PO (14:32)
[2018-02-27] MEDS ORDERED: vitamin b 12 PO (14:32)
--- NOTE | 2018-02-27 14:33 | ER Report ---
History and Physical Time Seen By : 14:21 HPI/ROS CHIEF COMPLAINT: Ankle injury HISTORY OF PRESENT ILLNESS: An inversion injury to left ankle. Having moderate swelling and no significant pain although patient is recovering from chronic inflammatory demyelinating polyneuropathy for which she is currently being treated with IVIG. This decreases her ability to feel. Because of the swelling she was instructed by her primary care doctor to come to the ER for an evaluation. Allergies: Coded Allergies: No Known Allergies (Verified Allergy, Unknown, 02/27/18) Home Meds Active Scripts Terbinafine HCl (Lamisil At) 1 % Cream..g., 0 TD BID, #30 GM Prov:LINA ROGERS MD 01/28/18 Nystatin (Nystatin) 100,000 Unit/Ml Oral.susp, 5 ML PO QID, #300 ML 2 Refills Prov:LINA ROGERS MD 11/19/17 Promethazine Hcl (PROMETHAZINE HCL) 25 Mg Tablet, 25 MG PO Q8H PRN for nausea vo miting, #30 TAB 1 Refill Prov:LINA ROGERS MD 11/17/17 Ondansetron Hcl (ZOFRAN) 4 Mg Tablet, 4 MG PO Q8H PRN for nausea, #60 TAB 3 Refills Prov:LINA ROGERS MD 09/05/17 Sodium Chloride (SODIUM CHLORIDE) 1 Gm Tab, 2 GM PO QDAY, #60 TAB 6 Refills Prov:LINA ROGERS MD 09/05/17 Potassium Chloride (POTASSIUM CHLORIDE) 10 Meq Capsule.er, 10 MEQ PO QDAY, #30 TAB 6 Refills Prov:LINA ROGERS MD 09/05/17 Magnesium Oxide (MAGNESIUM) 500 Mg Capsule, 1 CAP PO BID, #60 CAPSULE 6 Refills Prov:LINA ROGERS MD 09/05/17 Reported Medications [vitamin b 12] No Conflict Check, 2500 MG PO QDAY 02/27/18 Folic Acid (FOLIC ACID) 1 Mg Tablet, 1 MG PO QDAY, TAB 02/27/18 Gabapentin (GABAPENTIN) 300 Mg Capsule, 300 MG PO TID, CAPSULE 02/27/18 Omeprazole (PRILOSEC) 20 Mg Capsule.dr, 1 TAB PO BID TAKE ONE TABLET BY MOUTH TWICE A DAY 10/05/13 Discontinued Reported Medications Docusate Sodium (COLACE) 100 Mg Capsule, 100 MG PO, CAPSULE 08/04/17 Discontinued Scripts Gabapentin (GABAPENTIN) 300 Mg Capsule, 300 MG PO QID, #120 CAPSULE 3 Refills Prov:LINA ROGERS MD 11/19/17 Past Medical/Surgical History Recovering from chronic demyelinating polyneuropathy; receiving IVIG Hx Smoking: Yes (4-5CIGS/DAY FOR 30 YRS) Smoking Status: Current: Every Day Smoker, Light Tobacco Smoker Hx Substance Use Disorder: No Hx Alcohol Use: Yes (Rare) Constitutional Vital Sign - Last 24 Hours 02/27/18 14:25 Temp 98.0 Pulse 109 Resp 12 Pulse Ox 95 O2 Delivery Room Air Physical Exam General appearance: alert no distress Left ankle: There is moderate swelling. There is no obvious deformity to the ankle. There is moderate tenderness to the lateral malleolus. Ankle joint is stable and there is no tenderness over the achilles tendon. The foot is non-tender without swelling. Neurologic exam: The patient has normal sensation distal to the injury. Vascular exam: Normal pulses and capillary refill in the foot DIFFERENTIAL DIAGNOSIS: After history and physical exam differential diagnosis was considered for ankle injury including sprain, fracture, dislocation and soft tissue injury. Medical Decision Making EKG/Imaging Imaging X-ray shows no acute fracture interpreted by myself ED Course/Re-evaluation ED Course Plan at this time will be x-ray of the left ankle and left tibia Decision to Disposition Date: Feb 27, 2018 Decision to Disposition Time: 15:48 Depart Departure Latest Vital Signs Vital Signs Date Time Temp Pulse Resp B/P (MAP) Pulse Ox O2 Delivery O2 Flow Rate FiO2 02/27/18 14:25 98.0 109 12 95 Room Air Impression: Primary Impression: Ankle sprain Condition: Improved Disposition: HOME OR SELF-CARE Referrals: LINA ROGERS MD (PCP) Patient Instructions: Ankle Exercises (GEN), Ankle Fracture (ED) Problem Qualifiers Primary Impression: Ankle sprain Encounter type: initial encounter Involved ligament of ankle: anterior talofibular ligament Laterality: left Qualified Codes: S93.492A - Sprain of other ligament of left ankle, initial encounter JEET DARDEN MD Feb 27, 2018 14:33
[2018-02-27 15:45] VITALS: BP 128/77
--- NOTE | 2018-02-27 16:14 | RADIOLOGY IMAGING REPORT ---
[place] [facility] [place]: Viktoria Griffin : 1970 MR: [id number] V: [id number] EXAM DATE: ORDERING PHYSICIAN: JEET DARDEN TECHNOLOGIST: Location: [facility] Patient: Viktoria Griffin : 1970 Visit/Account:[id number] Date of Sevice: 02/27/2018 INDICATION: fall. DATE: 02/27/2018 4:05 PM. TECHNIQUE: ANKLE 3 VIEW MIN LEFT, TIBIA FIBULA LEFT COMPARISON: None FINDINGS: Left ankle: Bony alignment is normal. There is likely a small tibiotalar effusion. Soft tissue swel ling is suggested, most notably over the lateral malleolus. There is no fracture. Mild midfoot dege nerative findings. Small plantar calcaneal heel spur. Left tibia and fibula: Normal alignment without fracture or dislocation. IMPRESSION: No acute osseous abnormality. Report Dictated By: Marilee Simpson MD at 02/27/2018 4:05 PM Report E-Signed By: Marilee Simpson MD at 02/27/2018 4:08 PM WSN:[email or web address]
--- NOTE | 2018-02-27 16:18 | RADIOLOGY IMAGING REPORT ---
FACILITY: [facility] [place] PATIENT NAME: Viktoria Griffin : 1970 MR: [id number] V: [id number] EXAM DATE: ORDERING PHYSICIAN: JEET DARDEN TECHNOLOGIST: [facility] Patient: Viktoria Griffin : 1970 Visit/Account:[id number] Date of Sevice: 02/27/2018 INDICATION: fall. DATE: 02/27/2018 4:05 PM. TECHNIQUE: ANKLE 3 VIEW MIN LEFT, TIBIA FIBULA LEFT COMPARISON: None FINDINGS: Left ankle: Bony alignment is normal. There is likely a small tibiotalar effusion. Soft tissue swel ling is suggested, most notably over the lateral malleolus. There is no fracture. Mild midfoot dege nerative findings. Small plantar calcaneal heel spur. Left tibia and fibula: Normal alignment without fracture or dislocation. IMPRESSION: No acute osseous abnormality. Report Dictated By: Marilee Simpson MD at 02/27/2018 4:05 PM Report E-Signed By: Marilee Simpson MD at 02/27/2018 4:08 PM WSN:[email or web address]
== END 2018-02-27 15:58 | disposition home or self-care (01) ==
LOC: ER 14:36
DX: S93.492A Sprain of other ligament of left ankle, initial encounter (principal)
CPT/HCPCS: 99284

== ENCOUNTER 2018-03-27 13:45 | Outpatient (RCR) | payer OTHER ==
[2016-09-19 08:38] VITALS: BMI 29.1
--- NOTE | 2017-12-30 19:11 | PT INITIAL EVALUATION ---
MEDICAL DIAGNOSIS: G61.81 Chronic Inflammatory Demyelinating Polyneuropathy, R29.898 LE weakness TREATMENT DIAGNOSIS: Same, R26.89 Imbalance, R 53.81 Physical Deconditioning DATE OF ONSET: 02/10/15 SUBJECTIVE: Viktoria Griffin presents to PT for generalized weakness, recurrent falls, pain, spasms from CIDP with symptoms onset 4-6 years ago. She has improved to the point she has sharp neuropathy sensation in her proximal thigh and plantar feet, can drive, ambulate independently with hip and leg cramps. Standing time is 45 minutes, and Viktoria must rest after a shopping trip before cooking. She'd like to carry items up/down stairs with handrail without falling, bend down to unload the process helper and have better balance to reduce falls. She has recurrent falls, and any head down position to reach down causing vertigo and forward falls, once causing rib fractures. She's started IV Ig therapy. REHAB PROBLEM LIST: Increased Pain Decreased ROM Decreased Strength Decreased Endurance Decreased Balance Decreased Function Decreased ADL's Decreased Gait PREVIOUS MEDICAL HISTORY: L3-S1 fusions 2010, O2 at night, trigeminal neuralgia, breast cancer, hiatal hernia repair, 30 smoking history. 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 OBJECTIVE: Posture: Steady with heels 8" apart, mild trunk flexion, ER L LE. ROM: LE's PROM WNL with tight Achilles tendons. Strength: L peroneals 3-/5, fades in 3 reps, Tib. ant. 3-/5 fades in 6 reps. R ankle peroneals and DF 4-/5, holds 6 reps. Sensation: NT Special Tests: Vestibular Ocular reflex x1 and head thrust positive for spinning vertigo sensation without nystagmus but difficulty holding gaze stabilization, d/n. Eye tracking with lag, hz. and vertical spangler, d/n. Mobility: Sit train electronic technician 1 attempt without UE use, heels 8" apart. Gait: Tinetti Gait and Balance 14,a high fall risk. Viktoria ambulates with stiff LE's, midfoot strike to early heel off, mild weaving. She's unable to ambulate backwards without LOB, turns slowly with small steps, all firm surface. Balance: LOB static stand eyes closed. Proprioception intact at B 1st MTP and ankles. Seated head lowering beyond the pelvis with forward LOB. Static stand on foam with eyes open with retro LOB. LOB standing eyes open narrow ADAN. Stepping, protective extension, hip/ankle balance strategies are absent. ASSESSMENT: Viktoria Griffin presents with CIDP affecting both her general peripheral nerves as well as her vestibular nerves. She has a weak L ankle requiring dynamic AFO, general weakness, high fall risk from reduced balance with vestibular nerve involvement, altered gait and reduced function. She's an excellent candidate to achieve goals. Short Term Goals/Patient's Goals 1 month: Viktoria stands 60 min. to cook a meal. 2 months: Viktoria has the endurance to shop/put groceries away then cook a meal. 3 months: Shower without a chair with eyes closed, reach into dryer. 4 months: Carry laundry up/down a flight of stairs with handrail safely. 5 months: Unload a process helper head up/down often. 6 months: Independent fast gait, turns quickly with balance control, demonstrates stepping reflexes and corrective balance reactions on firm and uneven surfaces. PLAN: Patient to be seen for Manual Therapy Strengthening/condition Ice/Heat Range of Motion Spinal Stabilization Stretching Neuromuscular Re-ed Electrical Stim Posture/Body mechanics Gait Trg/Balance Trg Home Exercise Program 3x/Week for 6 months and re-assess further PT Thank you for this referral. If you have any questions, comments, or concerns about this report or plan, please contact me at . ALYD
--- NOTE | 2018-01-26 16:04 | PT PLAN OF CARE ---
Physician: Dr. Han Whitmore Patient is being seen: 2x/week Therapist: Scarlett Scott, PT Medical Diagnosis: G61.81 Chronic Inflammatory Demyelinating Polyneuropathy, R29.898 LE weakness Treatment Diagnosis: Same, R26.89 Imbalance, R 53.81 Physical Deconditioning Date of Onset: 02/10/15 Date of Initial Evaluation: 12/30/17 Date patient was last seen: 01/26/18 Number of treatments: 10 Number of cancellations/No shows: 0 INTERVENTIONS: Strengthening/condition Spinal Stabilization Neuromuscular Re-ed Gait Trg/Balance Trg Home Exercise Program GOALS/PATIENT'S GOAL: 1 month: Viktoria stands 60 min. to cook a meal. progressing 2 months: Viktoria has the endurance to shop/put groceries away then cook a meal. not met 3 months: Shower without a chair with eyes closed, reach into dryer. not met 4 months: Carry laundry up/down a flight of stairs with handrail safely. not met 5 months: Unload a wrapper selector head up/down often. not met 6 months: Independent fast gait, turns quickly with balance control, demonstrates stepping reflexes and corrective balance reactions on firm and uneven surfaces. all not met Patient Compliance: Excellent Prognosis: Excellent Reasons for continuing therapy: S: Viktoria report exercises work her well. She is doing short distance community ambulation. Posture: Heels 6" apart, mild trunk flexion, less ER L LE. Strength: Functional side step 40 feet before LE fatigue now. Viktoria still needs trunk and spinal/hip strengthening for standing stability. Special Tests: Vestibular Ocular reflex x1 improving in endurance, still with midline skips going to the L field. WNL eye tracking now. Gait/Balance: Static stand on foam with A/P trunk disturbance. Tinetti gait and balance improved to 20, a fall risk. Viktoria now ambulates with feet clearing the floor and passing each other. Mobility: Sit cooling tower technician 1 attempt without UE use, heels 8" apart more steady immediate standing balance. A/P: Viktoria Griffin is improving gait, strength, balance and is still a fall risk, is limited in endurance, strength. She'll get her L AFO this week. If you agree, we'll continue 5.25 months to goals set. Thank you. JACEK
--- NOTE | 2018-02-27 14:25 | PT PLAN OF CARE ---
Physician: Dr. Han Whitmore Patient is being seen: 2x/week Therapist: Scarlett Scott, PT Medical Diagnosis: G61.81 Chronic Inflammatory Demyelinating Polyneuropathy, R29.898 LE weakness 02/27/18: L lateral ankle sprain with question of avulsion fracture Treatment Diagnosis: Same, R26.89 Imbalance, R 53.81 Physical Deconditioning Date of Onset: 02/10/15 Sprain: 02/24/18 Date of Initial Evaluation: 12/30/17 Date patient was last seen: 02/27/18 Number of treatments: 14 Number of cancellations/No shows: 1 INTERVENTIONS: Strengthening/condition, Range of Motion, Stretching, Neuromuscular Re-ed, Gait Trg/Balance Trg, Home Exercise Program GOALS/PATIENT'S GOAL: 1 month: Viktoria stands 60 min. to cook a meal. progressing 2 months: Viktoria has the endurance to shop/put groceries away then cook a meal. not met 3 months: Shower without a chair with eyes closed, reach into dryer. not met 4 months: Carry laundry up/down a flight of stairs with handrail safely. not met 5 months: Unload a pig lead melter helper head up/down often. not met 6 months: Independent fast gait, turns quickly with balance control, demonstrates stepping reflexes and corrective balance reactions on firm and uneven surfaces. all not met Patient Compliance: Excellent Prognosis: Excellent Reasons for continuing therapy: S: Viktoria relates she sprained her L ankle 02/24/18. She wanted to wait for PT for ankle triage. O: Positive withdrawl with tuning fork to lateral malleolus. Edema, ecchymosis at the lateral ankle, edema dorsum of foot. Positive Grade II lateral ankle ligament laxity, anterior drawer talocrural joint. Flat footed gait. A/P: Viktoria Murrieta may have an avulsion fracture of the calcaneofibular ligament, has a grade II lateral ligament ankle sprain with her peripheral neuropathy. She's going to the ED here at [facility]. If you agree, we'll continue PT, including L ankle ligament treatment so she can return to PT for gait, balance and strengthening. Thank you. JACEK
[~2018-03-27 13:45] MED LIST changes: +FLUC40SU11 PO; +NYST15CR32 TP; +TRIA15OI20 TP; +vitamin b 12 PO
== END 2018-03-30 ==
LOC: PT 13:45
PROVIDERS: ATTEND Internal Medicine
DX: G61.81 Chronic inflammatory demyelinating polyneuritis (principal); R26.89 Other abnormalities of gait and mobility; R53.81 Other malaise; R29.6 Repeated falls
CPT/HCPCS: 97163

== ENCOUNTER 2018-04-02 08:25 | Outpatient (RCR) | payer OTHER ==
[2016-09-19 08:38] VITALS: Wt 71.1 kg
[2018-01-27 08:13] VITALS: BP 116/86
[2018-01-27] MEDS: diphenhydrAMINE 50 MG/ML VIAL IVP PRN (08:53)
[2018-01-27 12:40] VITALS: BP 113/78
[2018-03-11] VITALS (10 sets, daily range): BP systolic 113–133; BP diastolic 82–105
[2018-03-11] MEDS: LIDOCAINE/SOD BICARB 8.4% SYR ID PRN (11:46)
[2018-03-11] MEDS: diphenhydrAMINE 50 MG/ML VIAL IVP PRN (11:47)
[2018-03-11] MEDS: NS(*) 0.9% 500 ML BAG 500 ML IV PRN (14:52)
[~2018-04-02 08:25] MED LIST changes: +ACETAMINOPHEN(*)1000 MG/100 ML 100 ML IVPB PRN; +DEXTROSE 5%(*) 100 ML BAG 100 ML IVPB PRN; +IMMU GLOB(IGG) 10GR/100ML VIAL 100 ML IV ONE; +IMMU GLOB(IGG) 20GR/200ML VIAL 200 ML IV ONE; +NS(*) 0.9% 100 ML BAG 100 ML IVPB PRN; +ONDANSETRON 4 MG/2 ML VIAL IVP PRN; +PROMETHAZINE 25 MG/ML 1 ML AMP IVP ONE; +[UNRECOGNIZED DRUG - MIXTURE] IVPB ONE; +diphenhydrAMINE 50 MG/ML VIAL IVP PRN
[2018-04-02 08:29] VITALS: BP 136/105
[2018-04-02 08:49] LABS: PLATELET COUNT, AUTOMATED 240 K/uL (150-450)
[2018-04-02] MEDS: diphenhydrAMINE 50 MG/ML VIAL IVP PRN (08:50)
[2018-04-02] MEDS: LIDOCAINE/SOD BICARB 8.4% SYR ID PRN (08:51)
[2018-04-02] MEDS: NS(*) 0.9% 500 ML BAG 500 ML IV PRN (08:51)
[2018-04-02] MEDS ORDERED: IMMU GLOB(IGG) 20GR/200ML VIAL 20 GR, IMMU GLOB(IGG) 10GR/100ML VIAL 10 GR in EMPTY EVA... IVPB ONE (09:15)
[2018-04-02 12:28] VITALS: BP 118/88
[2018-04-10] MEDS ORDERED: PREG50CA48 PO (15:30)
[2018-04-10] MEDS ORDERED: GABA-549 PO (15:30)
[2018-04-10] MEDS ORDERED: CYCL10TA29 PO (16:17)
[2018-04-15] MEDS ORDERED: NYST100016 PO (08:30)
[2018-04-15] MEDS ORDERED: POTA10CA40 PO (08:32)
[2018-04-15] MEDS ORDERED: CYCL10TA29 PO (08:33)
[2018-04-15] MEDS ORDERED: SODCTAB PO (08:34)
== END 2018-04-26 ==
LOC: SPU 08:25
PROVIDERS: ATTEND Psychiatry & Neurology Neurology
DX: R20.9 Unspecified disturbances of skin sensation (principal); R26.9 Unspecified abnormalities of gait and mobility; J84.9 Interstitial pulmonary disease, unspecified; G61.81 Chronic inflammatory demyelinating polyneuritis; G50.0 Trigeminal neuralgia; R11.2 Nausea with vomiting, unspecified
CPT/HCPCS: 85025; 96365; 96366; 96375; J0131; J1200; J1459; J2550; J7040; J7050; 82040; 82247; 82310; 82374; 82435; 82565; 82947; 84075; 84132; 84155; 84295; 84450; 84460; 84520; 96376

== ENCOUNTER → 2018-04-02 | Outpatient (REF) | payer OTHER ==
[2016-09-19 08:38] VITALS: BMI 29.1
== END ==
LOC: ZZSENDIN 09:09
PROVIDERS: ATTEND Internal Medicine
DX: E83.42 Hypomagnesemia (principal)
CPT/HCPCS: 82607; 82746; 83735

== ENCOUNTER → 2018-04-02 | Outpatient (CLI) | payer OTHER ==
[2016-09-19 08:38] VITALS: BMI 29.1
== END ==
LOC: SPU 15:20
PROVIDERS: ATTEND Internal Medicine
DX: E53.8 Deficiency of other specified B group vitamins (principal)

== ENCOUNTER 2018-04-10 14:31 | Emergency (ER) | payer OTHER ==
[2016-09-19 08:38] VITALS: Wt 65.8 kg
[~2018-04-10 14:31] MED LIST changes: -ACETAMINOPHEN(*)1000 MG/100 ML 100 ML IVPB PRN; -DEXTROSE 5%(*) 100 ML BAG 100 ML IVPB PRN; -IMMU GLOB(IGG) 10GR/100ML VIAL 100 ML IV ONE; -IMMU GLOB(IGG) 20GR/200ML VIAL 200 ML IV ONE; -NS(*) 0.9% 100 ML BAG 100 ML IVPB PRN; -ONDANSETRON 4 MG/2 ML VIAL IVP PRN; -PROMETHAZINE 25 MG/ML 1 ML AMP IVP ONE; -[UNRECOGNIZED DRUG - MIXTURE] IVPB ONE; -diphenhydrAMINE 50 MG/ML VIAL IVP PRN
[2018-04-10 14:40] VITALS: BP 142/96
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
[2018-04-10] MEDS ORDERED: PREG50CA48 PO (15:30)
[2018-04-10] MEDS ORDERED: GABA-549 PO (15:30)
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
[2018-04-10] MEDS ORDERED: CYCL10TA29 PO (16:17)
== END 2018-04-10 16:26 | disposition home or self-care (01) ==
LOC: ER 14:45
DX: S16.1XXA Strain of muscle, fascia and tendon at neck level, initial encounter (principal)
CPT/HCPCS: 72125; 99284; L0172

== ENCOUNTER → 2018-04-30 | Outpatient (CLI) | payer OTHER ==
[2016-09-19 08:38] VITALS: BMI 29.1
[~2018-04-30] MED LIST changes: +PREG50CA48 PO
[2018-04-30 12:35] VITALS: BP 117/85
== END ==
LOC: SPU 08:38
PROVIDERS: ATTEND Internal Medicine
DX: E87.1 Hypo-osmolality and hyponatremia (principal); E87.6 Hypokalemia
CPT/HCPCS: 82040; 82247; 82310; 82374; 82435; 82565; 82947; 83735; 84075; 84132; 84155; 84295; 84450; 84460; 84520

== ENCOUNTER → 2018-06-12 | Outpatient (CLI) | payer OTHER ==
[2016-09-19 08:38] VITALS: BMI 29.1
[~2018-06-12] MED LIST changes: +AMIT-104 PO; +AZIT-17 PO; +VARE1TAB3 PO
== END ==
LOC: RESP 20:48
PROVIDERS: ATTEND Internal Medicine
DX: G47.33 Obstructive sleep apnea (adult) (pediatric) (principal); G47.36 Sleep related hypoventilation in conditions classified elsewhere

== ENCOUNTER 2018-06-25 08:26 | Outpatient (RCR) | payer OTHER ==
[2016-09-19 08:38] VITALS: Wt 67.6 kg
[2018-04-30 08:36] VITALS: BP 131/92
[2018-04-30] MEDS: diphenhydrAMINE 50 MG/ML VIAL IVP PRN (09:15)
[2018-04-30] MEDS: NS(*) 0.9% 100 ML BAG 100 ML IVPB PRN (09:16)
[2018-04-30 09:53] VITALS: BP 115/87
[2018-04-30 10:24] VITALS: BP 112/81
[2018-04-30 11:32] VITALS: BP 103/89
[2018-05-27 08:28] VITALS: BP 108/86
[2018-05-27 08:39] LABS: PLATELET COUNT, AUTOMATED 224 K/uL (150-450)
[2018-05-27] MEDS: diphenhydrAMINE 50 MG/ML VIAL IVP PRN (08:41)
[2018-05-27] MEDS: NS(*) 0.9% 100 ML BAG 100 ML IVPB PRN (08:41)
[2018-05-27 11:58] VITALS: BP 115/90
[~2018-06-25 08:26] MED LIST changes: +DEXTROSE 5%(*) 100 ML BAG 100 ML IVPB PRN; +IMMU GLOB(IGG) 10GR/100ML VIAL 100 ML IV ONE; +IMMU GLOB(IGG) 20GR/200ML VIAL 200 ML IV ONE; +LIDOCAINE/SOD BICARB 8.4% SYR ID PRN; +ONDANSETRON 4 MG/2 ML VIAL IVP PRN; +diphenhydrAMINE 50 MG/ML VIAL IVP PRN
[2018-06-25 08:34] VITALS: BP 132/88
[2018-06-25] MEDS ORDERED: diphenhydrAMINE 50 MG/ML VIAL IVP PRN (09:00)
[2018-06-25] MEDS ORDERED: ONDANSETRON 4 MG/2 ML VIAL IVP PRN ×2 (09:00)
[2018-06-25 09:05] LABS: PLATELET COUNT, AUTOMATED 277 K/uL (150-450)
[2018-06-25] MEDS: diphenhydrAMINE 50 MG/ML VIAL IVP PRN (09:09)
[2018-06-25] MEDS ORDERED: IMMU GLOB(IGG) 10GR/100ML VIAL 100 ML IV ONE (09:30)
[2018-06-25] MEDS ORDERED: IMMU GLOB(IGG) 20GR/200ML VIAL 200 ML IV ONE (09:30)
[2018-06-25] MEDS ORDERED: RIZA10TA PO (11:52)
[2018-06-25] MEDS ORDERED: LACT1CAP6 PO (11:54)
[2018-06-25] MEDS ORDERED: CLOB15CR22 TP (11:54)
[2018-06-25 12:21] VITALS: BP 118/88
[2018-07-23 09:02] VITALS: BP 105/87
[2018-07-23 09:18] LABS: PLATELET COUNT, AUTOMATED 297 K/uL (150-450)
[2018-07-23] MEDS: diphenhydrAMINE 50 MG/ML VIAL IVP PRN (09:20)
[2018-07-23] MEDS ORDERED: IMMUNE GLOBUL G/GLY/IGA 20 GM 200 ML IV ONE (10:30)
[2018-07-23] MEDS ORDERED: [UNRECOGNIZED DRUG - OTHER] IVPB ONE (11:30)
[2018-07-23] MEDS ORDERED: IMMUNE GLOBULIN IVPB ONE (11:30)
[2018-07-23 14:11] VITALS: BP 113/90
== END 2018-07-28 ==
LOC: SPU 08:26
PROVIDERS: ATTEND Psychiatry & Neurology Neurology
DX: G61.81 Chronic inflammatory demyelinating polyneuritis (principal); G50.0 Trigeminal neuralgia
CPT/HCPCS: 36415; 85025; 96365; 96366; 96375; J1200; J1459; J1561; J7050; 82310; 82374; 82435; 82565; 82947; 84132; 84295; 84520

== ENCOUNTER 2018-07-03 13:45 | Outpatient (RCR) | payer OTHER ==
[2016-09-19 08:38] VITALS: BMI 29.1
--- NOTE | 2018-04-06 17:22 | PT PLAN OF CARE ---
Physician: Dr. Han Whitmore Patient is being seen: 3x/week Therapist: Scarlett Scott, PT Medical Diagnosis: G61.81 Chronic Inflammatory Demyelinating Polyneuropathy, R29.898 LE weakness Treatment Diagnosis: Same, R26.89 Imbalance, R 53.81 Physical Deconditioning Date of Onset: 02/10/15 Date of Initial Evaluation: 12/30/17 Date patient was last seen: 04/06/18 Number of treatments: 20 Number of cancellations/No shows: 2 INTERVENTIONS: Strengthening/condition, Ice, Range of Motion, Spinal Stabilization, Stretching, Neuromuscular Re-ed, Electrical Stim, Gait Trg/Balance Trg, Home Exercise Program GOALS/PATIENT'S GOAL: 1 month: Viktoria stands 60 min. to cook a meal. met 2 months: Viktoria has the endurance to shop/put groceries away then cook a meal. met 3 months: Shower without a chair with eyes closed, reach into dryer. not met 4 months: Carry laundry up/down a flight of stairs with handrail safely. not met 5 months: Unload a wool supplier head up/down often. not met 6 months: Independent fast gait, turns quickly with balance control, demonstrates stepping reflexes and corrective balance reactions on firm and uneven surfaces. all not met Patient Compliance: Excellent Prognosis: Excellent Reasons for continuing therapy: S: Viktoria states she can fit her L AFO on her foot and ankle now, and has mild edema L ankle. She states she's stood for a n hour cooking, shops then prepares meals. She hasn't carried laundry down stairs, no standing eyes closed in shower or head down positions due to LOB, dizziness. Posture: Steady with heels 8" apart, upright trunk, LE's ER 25 degrees B. ROM: L ankle PROM 15 degrees. Strength: L peroneals 3+/5, Tib. ant. 3+/5 now. R ankle peroneals and DF 4/5. Palpation: Mild edema L lateral ankle. Special Tests: Vestibular Ocular reflex x1 with gaze stabilization but trunk perturbation., dizziness. Gait: Tinetti Gait and Balance 15, a 5 point reduction from last time. Viktoria is able to ambulate without her L AFO 30 feet without foot drop, but low foot clearance. Mobility: Sit mortgage processing manager 1 attempt with legs against mat table, heels 8" apart. A/P: Viktoria Griffin is improving L ankle function after her sprain and small avulsion fracture. She has regressed in balance as we focused on healing her ankle. She's now ready to return to gait/balance/strengthening she's done before her ankle injury and to begin weaning from her L AFO. If you agree we'll continue 3x/week another 3 months to goals set. Thank you. JACEK
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
[~2018-07-03 13:45] MED LIST changes: +CLOB15CR22 TP; -DEXTROSE 5%(*) 100 ML BAG 100 ML IVPB PRN; -IMMU GLOB(IGG) 10GR/100ML VIAL 100 ML IV ONE; -IMMU GLOB(IGG) 20GR/200ML VIAL 200 ML IV ONE; +LACT1CAP6 PO; -LIDOCAINE/SOD BICARB 8.4% SYR ID PRN; -ONDANSETRON 4 MG/2 ML VIAL IVP PRN; +RIZA10TA PO; -diphenhydrAMINE 50 MG/ML VIAL IVP PRN
--- NOTE | 2018-07-03 16:04 | PT PLAN OF CARE ---
Physician: Dr. Han Whitmore Patient is being seen: 1-2x/week Therapist: Scarlett Scott, CHIDI Medical Diagnosis: G61.81 Chronic Inflammatory Demyelinating Polyneuropathy, R29.898 LE weakness Treatment Diagnosis: Same, R26.89 Imbalance, R 53.81 Physical Deconditioning Date of Onset: 02/10/15 Date of Initial Evaluation: 12/30/17 Date patient was last seen: 07/03/18 Number of treatments: 31 Number of cancellations/No shows: 5 INTERVENTIONS: Strengthening/condition, Spinal Stabilization, Neuromuscular Re- ed, Gait Trg/Balance Trg, Home Exercise Program GOALS/PATIENT'S GOAL: 1 month: Viktoria stands 60 min. to cook a meal. met 2 months: Viktoria has the endurance to shop/put groceries away then cook a meal. met 3 months: Shower without a chair with eyes closed, reach into dryer. not met 4 months: Carry laundry up/down a flight of stairs with handrail safely. progressing 5 months: Unload a patent attorney head up/down often. not met 6 months: Independent fast gait, turns quickly with balance control, demonstrates stepping reflexes and corrective balance reactions on firm and uneven surfaces. all not met Patient Compliance: Excellent Prognosis: Excellent Reasons for continuing therapy: S: Viktoria relates she can carry laundry upstairs, still isn't closing her eyes in the shower or putting dishes into the patent attorney due to dizziness with these movements. She feels her legs are stronger, her L ankle is doing well. Posture: Steady with heels 4" apart, upright trunk and normal angle of stance. Strength: Quads and hip flexors 4+/5, hamstrings 4/5, tib. anterior R 5-/5, L 4+/5, peroneals 4+/5 B. Special Tests: Vestibular Ocular Reflex x1 with dizziness, no nystagmus, still, trunk shimmy. Gait: Independent gait with midfoot to toe off, halting steps due to trunk coordination, with CENTER MGR x1 more smooth steps. Balance: Double limb support, tandem stand with trunk jerking, with hip stabilization able to stand with one finger tip on bars now. Head up/down with bending forward with immediate LOB, dizziness. Mobility: Sit scanning manager 1 attempt without UE use, heels 4" apart. A/P: Viktoria Griffin is improving strength well and needs more core/trunk strengthening, vestibular habituation training. if you agree,we'll continue another 3 months at 2x/week to goals set. Thank you. JACEK
== END 2018-07-05 ==
LOC: PT 13:45
PROVIDERS: ATTEND Internal Medicine
DX: G61.81 Chronic inflammatory demyelinating polyneuritis (principal); R26.89 Other abnormalities of gait and mobility; R53.81 Other malaise; R29.6 Repeated falls

== ENCOUNTER 2018-07-14 13:39 | Outpatient (RCR) | payer OTHER ==
[2016-09-19 08:38] VITALS: BMI 29.1
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
== END 2018-07-20 ==
LOC: PT 13:39
PROVIDERS: ATTEND Internal Medicine
DX: S16.1XXA Strain of muscle, fascia and tendon at neck level, initial encounter (principal); G61.81 Chronic inflammatory demyelinating polyneuritis; V89.2XXA Person injured in unspecified motor-vehicle accident, traffic, initial encounter
CPT/HCPCS: 97163

== ENCOUNTER → 2018-08-11 | Outpatient (CLI) | payer OTHER ==
[2016-09-19 08:38] VITALS: BMI 29.1
[~2018-08-11] MED LIST changes: +NS(*) 0.9% 1000 ML BAG 1,000 ML IV PRN; +ONDA8TAB91 PO; +ONDA8TAB98 PO; +PROMETHAZINE 25 MG/ML 1 ML AMP IVP ONE
[2018-08-11 16:35] LABS: PLATELET COUNT, AUTOMATED 220 K/uL (150-450)
== END ==
LOC: SPU 14:44
PROVIDERS: ATTEND Nurse Practitioner Primary Care
DX: E86.0 Dehydration (principal)
CPT/HCPCS: 85025; 96374; J2550; 82040; 82247; 82310; 82374; 82435; 82565; 82947; 84075; 84132; 84155; 84295; 84450; 84460; 84520

== ENCOUNTER → 2018-08-14 | Outpatient (CLI) | payer OTHER ==
[2016-09-19 08:38] VITALS: BMI 29.1
[~2018-08-14] MED LIST changes: -NS(*) 0.9% 1000 ML BAG 1,000 ML IV PRN; -PROMETHAZINE 25 MG/ML 1 ML AMP IVP ONE
== END ==
LOC: LAB 08:23
PROVIDERS: ATTEND Nurse Practitioner Primary Care
DX: E80.6 Other disorders of bilirubin metabolism (principal)
CPT/HCPCS: 36415; 82040; 82247; 82310; 82374; 82435; 82565; 82947; 84075; 84132; 84155; 84295; 84450; 84460; 84520

== ENCOUNTER 2018-08-19 08:55 | Outpatient (RCR) | payer OTHER ==
[2016-09-19 08:38] VITALS: Wt 66.3 kg
[~2018-08-19 08:55] MED LIST changes: +DEXTROSE 5%(*) 100 ML BAG 100 ML IVPB PRN; +LIDOCAINE/SOD BICARB 8.4% SYR ID PRN; +NS(*) 0.9% 100 ML BAG 100 ML IVPB PRN
[2018-08-19 09:02] VITALS: BP 129/90
[2018-08-19 09:14] LABS: PLATELET COUNT, AUTOMATED 236 K/uL (150-450)
[2018-08-19] MEDS ORDERED: IMMUNE GLOBULIN IVPB ONE (09:45)
[2018-08-19] MEDS ORDERED: diphenhydrAMINE 25 MG CAP PO PRN (09:45)
[2018-08-19] MEDS ORDERED: ACETAMINOPHEN 325 MG TAB PO PRN (09:45)
[2018-08-19] MEDS ORDERED: IMMUNE GLOBUL G/GLY/IGA 20 GM 200 ML IV ONE (09:45)
[2018-08-19] MEDS ORDERED: [UNRECOGNIZED DRUG - OTHER] IVPB ONE (09:45)
[2018-08-19 12:41] VITALS: BP 145/100
== END 2018-09-02 13:53 | disposition home or self-care (01) ==
LOC: SPU 08:55
PROVIDERS: ATTEND Psychiatry & Neurology Neurology
DX: G61.81 Chronic inflammatory demyelinating polyneuritis (principal); G50.0 Trigeminal neuralgia
CPT/HCPCS: 85025; 96365; 96366; J1561; Q0163; 82040; 82247; 82310; 82374; 82435; 82565; 82947; 84075; 84132; 84155; 84295; 84450; 84460; 84520

== ENCOUNTER → 2018-08-31 | Outpatient (CLI) | payer OTHER ==
[2016-09-19 08:38] VITALS: BMI 29.1
[~2018-08-31] MED LIST changes: -DEXTROSE 5%(*) 100 ML BAG 100 ML IVPB PRN; -LIDOCAINE/SOD BICARB 8.4% SYR ID PRN; -NS(*) 0.9% 100 ML BAG 100 ML IVPB PRN
[2018-08-31 12:51] LABS: PLATELET COUNT, AUTOMATED 264 K/uL (150-450)
[2018-08-31 13:19] LABS: INR 0.92
== END ==
LOC: LAB 12:09
PROVIDERS: ATTEND Nurse Practitioner Primary Care
DX: R29.810 Facial weakness (principal)
CPT/HCPCS: 36415; 82040; 82247; 82310; 82374; 82435; 82565; 82947; 84075; 84132; 84155; 84295; 84450; 84460; 84520; 85025; 85610; 85730

== ENCOUNTER 2018-09-07 03:31 | Emergency (ER) | payer OTHER ==
[2016-09-19 08:38] VITALS: Wt 65.8 kg
--- NOTE | 2018-09-07 03:37 | ER Report ---
History and Physical Time Seen By MD: 03:33 HPI/ROS CHIEF COMPLAINT: Chest pain HISTORY OF PRESENT ILLNESS: 48-year-old female with an extensive past medical history of demyelinating disease. Patient notes sudden onset of left upper chest pain tonight. She notes 6/10 dull pain, no change with respiration, she notes no shortness of breath, no diaphoresis. Patient does note nausea. She states that she has chronic nausea and always vomits frequently. Patient notes no fever, chills or productive cough. Patient denies leg swelling or calf pain. Patient denies history of cardiac disease. REVIEW OF SYSTEMS: Respiratory: No cough, no dyspnea. Cardiovascular: As above Gastrointestinal: As above Musculoskeletal: No back pain. Allergies: Coded Allergies: No Known Allergies (Verified Allergy, Unknown, 09/07/18) Home Meds Active Scripts Ondansetron 4 Mg Odt (ONDANSETRON 4 MG ODT) 4 Mg Tab.rapdis, 4 MG PO Q6H PRN for NAUSEA/VOMITING, #30 TAB Prov:BEN ENRIQUEZ DO 09/07/18 Nystatin (Nystatin) 100,000 Unit/Ml Oral.susp, 1 TSP PO QID, #600 ML 5 Refills Prov:LINA ROGERS MD 05/14/18 Sodium Chloride (SODIUM CHLORIDE) 1 Gm Tab, 1 GM PO QDAY, #30 TAB 6 Refills Prov:LINA ROGERS MD 04/15/18 Potassium Chloride (POTASSIUM CHLORIDE) 10 Meq Capsule.er, 10 MEQ PO QODAY, #30 TAB 6 Refills Prov:LINA ROGERS MD 04/15/18 Ondansetron Hcl (ZOFRAN) 4 Mg Tablet, 4 MG PO Q8H PRN for nausea, #60 TAB 3 R efills Prov:LINA ROGERS MD 09/05/17 Magnesium Oxide (MAGNESIUM) 500 Mg Capsule, 1 CAP PO BID, #60 CAPSULE 6 Refills Prov:LINA ROGERS MD 09/05/17 Reported Medications Docusate Sodium (DOCUSATE SODIUM) 100 Mg Capsule, 100 MG PO BID, CAPSULE 09/07/18 Lactobacillus Combination No.4 (PROBIOTIC) 1 Each Capsule, 1 EACH PO, CAPSULE 06/25/18 Rizatriptan Benzoate (MAXALT) 10 Mg Tablet, 10 MG PO 06/25/18 Amitriptyline Hcl (AMITRIPTYLINE HCL) 10 Mg Tablet, 10 MG PO QHS, #5 TAB 05/14/18 Pregabalin (LYRICA) 50 Mg Capsule, 50 MG PO DIRECTED, CAPSULE 50 mg in am and 150 at night 04/10/18 Omeprazole (PRILOSEC) 20 Mg Capsule.dr, 1 TAB PO BID TAKE ONE TABLET BY MOUTH TWICE A DAY 10/05/13 Discontinued Reported Medications Clobetasol Propionate/Emoll (CLOBETASOL EMOLLIENT 0.05% CRM) 15 Gm Cream..g., 0 TP BID 06/25/18 Varenicline Tartrate (CHANTIX) 1 Each Tab.ds.pk, 1 EACH PO QDAY, #60 TAB 3 Refills 05/14/18 Varenicline Tartrate (CHANTIX) 0.5 Mg Tab, 0.5 MG PO use as directed, #60 TAB 0.5 mg x once a day x 3 days 0.5 mg BID x 4 days than 1 mg BID 05/14/18 Discontinued Scripts Ondansetron (ONDANSETRON ODT) 8 Mg Tab.rapdis, 8 MG PO Q12H PRN for NAUSEA/VOMITING, #15 TAB Prov:CASSIUS ESTRADA DNP, BUSINESS PROCESS MANAGER-BC 08/11/18 NYSTATIN 311067 UNT/ML Topical Cream (NYSTATIN 037960 UNT/ML Topical Cream) 15 Gm Cream..g., 15 GM TP BID, #15 GM 2 Refills Prov:LINA ROGERS MD 03/19/18 Past Medical/Surgical History Patient has a past medical history of trigeminal neuralgia, chronic inflammatory demyelinating neuropathy, pneumonia, gastroparesis, only liver enzymes, wrist fracture, clavicle fracture, bilateral ankle fractures, back pain, rare alcohol use, shingles. Patient has a surgical history of a hiatal hernia repair, appendectomy, cholecystectomy, hysterectomy, left rotator cuff repair, back fusion, tonsillectomy. Reviewed Nurses Notes: Yes Old Medical Records Reviewed: Yes Hx Smoking: Yes (4-5CIGS/DAY FOR 30 YRS) Smoking Status: Current: Every Day Smoker, Light Tobacco Smoker Hx Substance Use Disorder: No Hx Alcohol Use: Yes (Rare) Constitutional Vital Sign - Last 24 Hours 09/07/18 09/07/18 09/07/18 09/07/18 03:32 03:35 03:46 04:00 Temp 97.7 Pulse 100 79 Resp 16 B/P (MAP) 142/99 (113) 142/99 109/75 (86) Pulse Ox 91 89 O2 Delivery Room Air 09/07/18 09/07/18 09/07/18 09/07/18 04:01 04:16 04:30 04:31 Pulse 77 74 70 B/P (MAP) 119/83 (95) Pulse Ox 95 86 85 09/07/18 09/07/18 09/07/18 09/07/18 04:36 04:44 04:51 05:00 Pulse 85 60 B/P (MAP) 103/68 (80) Pulse Ox 87 O2 Flow Rate 3.0 09/07/18 05:06 Pulse 66 Pulse Ox 86 Physical Exam General Appearance: The patient is alert, has no immediate need for airway protection and no current signs of toxicity. Mild distress, vital signs stable, afebrile, pulse ox normal HEENT: Pupils equal and round no injection. TMs normal, oropharynx without redness or exudate, mucous members are moist Respiratory: Chest is non tender, lungs are clear to auscultation. No chest wall tenderness Cardiac: regular rate and rhythm, no murmur Gastrointestinal: Abdomen is soft and non tender, no masses, bowel sounds normal. Musculoskeletal: Neck: Neck is supple and non tender. No lymphadenopathy, no J VD Extremities have full range of motion and are non tender. No edema, no calf tenderness Skin: No rashes or lesions. DIFFERENTIAL DIAGNOSIS: After history and physical exam differential diagnosis w as considered for chest pain including but not limited to myocardial ischemia, pericarditis pulmonary embolus, chest wall pain, pleural inflammation and pulmonary infectious causes. Medical Decision Making Data Points Result Diagram: 09/07/18 0343 09/07/18 0343 Laboratory Hematology Test 09/07/18 03:43 White Blood Count 7.8 k/uL (4.5-11.0) Red Blood Count 3.90 M/uL (4.17-5.56) L Hemoglobin 13.3 g/dL (12.0-16.0) Hematocrit 38.8 % (34.0-47.0) Mean Corpuscular Volume 99.4 fL (80.0-96.0) H Mean Corpuscular Hemoglobin 34.2 pg (26.0-33.0) H Mean Corpuscular Hemoglobin Concent 34.4 g/dL (32.0-36.0) Red Cell Distribution Width 13.7 % (11.5-14.5) Platelet Count 301 K/uL (150-450) Mean Platelet Volume 6.7 fL (7.2-11.1) L Neutrophils (%) (Auto) 41.1 % (39.4-72.5) Lymphocytes (%) (Auto) 46.9 % (17.6-49.6) Monocytes (%) (Auto) 8.4 % (4.1-12.4) Eosinophils (%) (Auto) 1.6 % (0.4-6.7) Basophils (%) (Auto) 2.0 % (0.3-1.4) H Nucleated RBC Relative Count (auto) 0.0 /100WBC Neutrophils # (Auto) 3.2 K/uL (2.0-7.4) Lymphocytes # (Auto) 3.6 K/uL (1.3-3.6) Monocytes # (Auto) 0.7 K/uL (0.3-1.0) Eosinophils # (Auto) 0.1 K/uL (0.0-0.5) Basophils # (Auto) 0.2 K/uL (0.0-0.1) H Nucleated RBC Absolute Count (auto) 0.00 K/uL Chemistry Test 09/07/18 03:43 Sodium Level 139 mmol/L (137-145) Potassium Level 3.8 mmol/L (3.5-5.0) Chloride Level 102 mmol/L (98-107) Carbon Dioxide Level 25 mmol/L (22-31) Blood Urea Nitrogen 17 mg/dl (7-18) Creatinine 0.60 mg/dl (0.52-1.04) Glomerular Filtration Rate Calc > 60.0 Random Glucose 146 mg/dl (75-110) Calcium Level 9.7 mg/dl (8.4-10.2) Total Bilirubin 0.3 mg/dl (0.2-1.3) Aspartate Amino Transf (AST/SGOT) 47 U/L (0-35) Alanine Aminotransferase (ALT/SGPT) 28 U/L (0-56) Alkaline Phosphatase 150 U/L (0-126) Troponin I < 0.012 ng/ml B-Type Natriuretic Peptide 20 pg/ml (0-100) Total Protein 8.8 g/dl (6.3-8.2) Albumin 4.4 g/dl (3.5-5.0) Amylase Level 72 U/L (0-110) Lipase 201 U/L (23-300) EKG/Imaging EKG Interpretation 12 lead EK 353 Rhythm: normal sinus rhythm [place]: normal QRS: normal ST segments:, On previous EKG dated 09/18/16 and before that. There was some nonspecific ST and T-wave changes in the record ill leads and now have normalized. Imaging X-ray: Two-view chest x-ray was obtained. I viewed the images myself on the PACS system. My interpretation of the images is: No infiltrate, no effusion, normal mediastinum., Comparison to previous chest x-ray 11/19/17, no significant change. The radiologist interpretation had no clinically signi ficant variation from this interpretation. ED Course/Re-evaluation Clinical Indication for ER IV: IV Access ED Course Patient was admitted to an examination room. H&P was done. The dental diagnoses was considered. Patient with chest pain in her left upper shoulder. Patient notes no diaphoresis or shortness of breath. She does have nausea but she has chronic nausea. She has gastroparesis and frequent vomiting. Patient EKG and troponin are negative. Her chest x-ray is unremarkable. Patient's pain resolved with Toradol 30 motor grams IV. She was given Zofran for vomiting. Patient is sleeping. She is advised to take ibuprofen at home and follow up with [facility] for chest pain persists. Decision to Disposition Date: Sep 07, 2018 Decision to Disposition Time: 04:08 Depart Departure Latest Vital Signs Vital Signs Date Time Temp Pulse Resp B/P (MAP) Pulse Ox O2 Delivery O2 Flow Rate FiO2 09/07/18 05:06 66 86 09/07/18 05:00 103/68 (80) 09/07/18 04:44 3.0 09/07/18 03:35 97.7 16 Room Air Impression: Primary Impression: Chest pain of uncertain etiology Additional Impressions: CIDP (chronic inflammatory demyelinating polyneuropathy) Nausea and vomiting Condition: Improved Disposition: HOME OR SELF-CARE Referrals: LINA ROGERS MD (PCP) New Scripts Ondansetron 4 Mg Odt (ONDANSETRON 4 MG ODT) 4 Mg Tab.rapdis 4 MG PO Q6H PRN for NAUSEA/VOMITING, #30 TAB Prov: BEN ENRIQUEZ DO 09/07/18 Patient Instructions: Noncardiac Chest Pain (ED) Additional Instructions: Follow-up with your primary care Dr Rogers this week. Problem Qualifiers Additional Impressions: Nausea and vomiting Vomiting type: unspecified Vomiting Intractability: unspecified Qualified Codes: R11.2 - Nausea with vomiting, unspecified BEN ENRIQUEZ DO Sep 07, 2018 03:37
[2018-09-07] MEDS ORDERED: DOCU-202 PO (03:41)
[2018-09-07] MEDS ORDERED: ASPIRIN 81 MG CHEW PO ONE (03:45)
[2018-09-07 03:56] LABS: PLATELET COUNT, AUTOMATED 301 K/uL (150-450)
[2018-09-07] MEDS ORDERED: ONDANSETRON 4 MG/2 ML VIAL IVP ONE (04:10)
[2018-09-07] MEDS ORDERED: KETOROLAC 30 MG/ML VIAL IVP ONE (04:55)
[2018-09-07] MEDS ORDERED: ONDA4TAB9 PO (04:56)
--- NOTE | 2018-09-07 04:58 | RADIOLOGY IMAGING REPORT ---
FACILITY: [facility] PATIENT NAME: Viktoria Griffin : 1970 MR: [id number] V: [id number] EXAM DATE: ORDERING PHYSICIAN: BEN ENRIQUEZ TECHNOLOGIST: Location: [facility] Patient: Viktoria Griffin : 1970 Visit/Account:[id number] Date of Sevice: 09/07/2018 CHEST: Indication: Chest pain. Technique: Frontal and lateral views were obtained. Comparison: 11/19/2017 Skeletal and soft tissue structures: There are mild degenerative changes in the thoracic spine. Old l eft rib fractures. No acute skeletal deformity. Heart and mediastinum: Within normal limits. Lung spangler: Well-expanded. No focal opacities. Pleural spaces: Unremarkable. Impression: No acute process or significant change. Report Dictated By: León Sheth MD at 09/07/2018 4:49 AM Report E-Signed By: León Sheth MD at 09/07/2018 4:51 AM WSN:[id number]
[2018-09-07 05:00] VITALS: BP 103/68
--- NOTE | 2018-09-07 06:29 | EKG ---
FACILITY: [facility] PATIENT NAME: MARLENI ALLISON : [id number] MR: [id number] V: [id number] EXAM DATE: ORDERING PHYSICIAN: BEN ENRIQUEZ TECHNOLOGIST: DARCI Xie Reason : Blood Pressure : / mmHG Vent. Rate : 076 BPM Atrial Rate : 076 BPM P-R Int : 174 ms QRS Dur : 088 ms QT Int : 408 ms P-R-T Axes : 045 -28 034 degrees QTc Int : 459 ms Normal sinus rhythm Normal ECG Confirmed by DELMY NGUYEN ([id number]) on 09/07/2018 6:34:14 AM Referred By: Confirmed By:DELMY NGUYEN
== END 2018-09-07 05:20 | disposition home or self-care (01) ==
LOC: ER 03:54
DX: R07.9 Chest pain, unspecified (principal); G61.81 Chronic inflammatory demyelinating polyneuritis; R11.2 Nausea with vomiting, unspecified
CPT/HCPCS: 71046; 82150; 83690; 83880; 84484; 85025; 93005; 96374; 96375; 99284; J1885; J2405; 82040; 82247; 82310; 82374; 82435; 82565; 82947; 84075; 84132; 84155; 84295; 84450; 84460; 84520

== ENCOUNTER 2018-09-09 11:52 | Emergency (ER) | payer OTHER ==
[2016-09-19 08:38] VITALS: Wt 66.7 kg
[~2018-09-09 11:52] MED LIST changes: +DOCU-202 PO; +ONDA4TAB9 PO
--- NOTE | 2018-09-09 12:00 | ER Report ---
History and Physical Time Seen By MD: 11:56 (JEET DARDEN MD) Time Seen By MD: 12:43 (PEDRITO FERNANDES) Allergies: Coded Allergies: No Known Allergies (Verified Allergy, Unknown, 09/07/18) Home Meds Active Scripts Ondansetron 4 Mg Odt (ONDANSETRON 4 MG ODT) 4 Mg Tab.rapdis, 4 MG PO Q6H PRN for NAUSEA/VOMITING, #30 TAB Prov:BEN ENRIQUEZ DO 09/07/18 Nystatin (Nystatin) 100,000 Unit/Ml Oral.susp, 1 TSP PO QID, #600 ML 5 Refills Prov:LINA ROGERS MD 05/14/18 Sodium Chloride (SODIUM CHLORIDE) 1 Gm Tab, 1 GM PO QDAY, #30 TAB 6 Refills Prov:LINA ROGERS MD 04/15/18 Potassium Chloride (POTASSIUM CHLORIDE) 10 Meq Capsule.er, 10 MEQ PO QODAY, #30 TAB 6 Refills Prov:LINA ROGERS MD 04/15/18 Ondansetron Hcl (ZOFRAN) 4 Mg Tablet, 4 MG PO Q8H PRN for nausea, #60 TAB 3 Refills Prov:LINA ROGERS MD 09/05/17 Magnesium Oxide (MAGNESIUM) 500 Mg Capsule, 1 CAP PO BID, #60 CAPSULE 6 Refills Prov:LINA ROGERS MD 09/05/17 Reported Medications Docusate Sodium (DOCUSATE SODIUM) 100 Mg Capsule, 100 MG PO BID, CAPSULE 09/07/18 Lactobacillus Combination No.4 (PROBIOTIC) 1 Each Capsule, 1 EACH PO, CAPSULE 06/25/18 Rizatriptan Benzoate (MAXALT) 10 Mg Tablet, 10 MG PO 06/25/18 Amitriptyline Hcl (AMITRIPTYLINE HCL) 10 Mg Tablet, 10 MG PO QHS, #5 TAB 05/14/18 Pregabalin (LYRICA) 50 Mg Capsule, 50 MG PO DIRECTED, CAPSULE 50 mg in am and 150 at night 04/10/18 Omeprazole (PRILOSEC) 20 Mg Capsule.dr, 1 TAB PO BID TAKE ONE TABLET BY MOUTH TWICE A DAY 10/05/13 Discontinued Reported Medications Clobetasol Propionate/Emoll (CLOBETASOL EMOLLIENT 0.05% CRM) 15 Gm Cream..g., 0 TP BID 06/25/18 Varenicline Tartrate (CHANTIX) 1 Each Tab.ds.pk, 1 EACH PO QDAY, #60 TAB 3 Refills 05/14/18 Varenicline Tartrate (CHANTIX) 0.5 Mg Tab, 0.5 MG PO use as directed, #60 TAB 0.5 mg x once a day x 3 days 0.5 mg BID x 4 days than 1 mg BID 05/14/18 Discontinued Scripts Ondansetron (ONDANSETRON ODT) 8 Mg Tab.rapdis, 8 MG PO Q12H PRN for NAUSEA/VOMITING, #15 TAB Prov:CASSIUS ESTRADA DNP, AGENT PRODUCER-BC 08/11/18 NYSTATIN [id number] UNT/ML Topical Cream (NYSTATIN 140810 UNT/ML Topical Cream) 15 Gm Cream..g., 15 GM TP BID, #15 GM 2 Refills Prov:LINA ROGERS MD 03/19/18 Past Medical/Surgical History Patient has a past medical history of trigeminal neuralgia, chronic inflammatory demyelinating neuropathy, pneumonia, gastroparesis, only liver enzymes, wrist fracture, clavicle fracture, bilateral ankle fractures, back pain, rare alcohol use, shingles. Patient has a surgical history of a hiatal hernia repair, appendectomy, cholecystectomy, hysterectomy, left rotator cuff repair, back fusion, tonsillectomy. (JEET DARDEN MD) Hx Smoking: Yes (4-5CIGS/DAY FOR 30 YRS) Smoking Status: Current: Every Day Smoker, Light Tobacco Smoker Hx Substance Use Disorder: No Hx Alcohol Use: Yes (Rare) (JEET DARDEN MD) Constitutional Vital Sign - Last 24 Hours 09/09/18 12:06 Temp 98.6 Pulse 116 Resp 20 B/P (MAP) 125/92 Pulse Ox 93 O2 Delivery Room Air (PEDRITO FERNANDES) Depart Departure Latest Vital Signs Vital Signs Date Time Temp Pulse Resp B/P (MAP) Pulse Ox O2 Delivery O2 Flow Rate FiO2 09/09/18 12:06 98.6 116 20 125/92 93 Room Air (PEDRITO FERNANDES) Condition: Stable Disposition: HOME OR SELF-CARE Referrals: LINA ROGERS MD (PCP) JEET DARDEN MD Sep 09, 2018 12:00 PEDRITO FERNANDES Sep 09, 2018 12:46
[2018-09-09] MEDS ORDERED: NS(*) 0.9% 1000 ML BAG 1,000 ML IV ONE ×2 (12:53→14:10)
[2018-09-09] MEDS ORDERED: ONDANSETRON 4 MG/2 ML VIAL IVP ONE (12:55)
--- NOTE | 2018-09-09 13:01 | ER Report ---
History and Physical Time Seen By MD: 12:41 Hx. of Stated Complaint: PATIENT REPORTS VOMITING FOR 3 DAYS. WAS SEEN FRIDAY IN THE ER FOR THE SAME THING HPI/ROS CHIEF COMPLAINT: Nausea, vomiting or diarrhea HISTORY OF PRESENT ILLNESS: 48-year-old female patient presents to emergency room with complaint of nausea, vomiting diarrhea. Patient states that she's not been able to eat or drink anything for the past several days. Patient states she's not been able to eat and his drink sparingly over the last couple days. She states she's had several bouts of vomiting throughout the day as well as multiple bouts of diarrhea. Patient states today she is going to see her physician down in [place]. She states that as a [employer] the movement of the car at her more nauseous and started vomiting. At that time her turn around and brought her back to town. They did try to follow-up with their primary care provider, but he is not able to get her in. The recommend that she come into the emergency room for evaluation. Patient denies having any pain is abnormal for her. She states she is just not been able to keep anything down for last couple days. REVIEW OF SYSTEMS: Respiratory: No cough, no dyspnea. Cardiovascular: No chest pain, no palpitations. Gastrointestinal: As noted above Musculoskeletal: No back pain. Allergies: Coded Allergies: No Known Allergies (Verified Allergy, Unknown, 09/07/18) Home Meds Active Scripts Promethazine Hcl (PROMETHAZINE HCL) 25 Mg Supp.rect, 25 MG RC Q8H PRN for NAUSEA/VOMITING, #15 SUPP.RECT Prov:PEDRITO FERNANDES 09/09/18 Ondansetron 4 Mg Odt (ONDANSETRON 4 MG ODT) 4 Mg Tab.rapdis, 4 MG PO Q6H PRN for NAUSEA/VOMITING, #30 TAB Prov:BEN ENRIQUEZ DO 09/07/18 Nystatin (Nystatin) 100,000 Unit/Ml Oral.susp, 1 TSP PO QID, #600 ML 5 Refills Prov:LINA ROGERS MD 05/14/18 Sodium Chloride (SODIUM CHLORIDE) 1 Gm Tab, 1 GM PO QDAY, #30 TAB 6 Refills Prov:LINA ROGERS MD 04/15/18 Potassium Chloride (POTASSIUM CHLORIDE) 10 Meq Capsule.er, 10 MEQ PO QODAY, #30 TAB 6 Refills Prov:LINA ROGERS MD 04/15/18 Ondansetron Hcl (ZOFRAN) 4 Mg Tablet, 4 MG PO Q8H PRN for nausea, #60 TAB 3 Refills Prov:LINA ROGERS MD 09/05/17 Magnesium Oxide (MAGNESIUM) 500 Mg Capsule, 1 CAP PO BID, #60 CAPSULE 6 Refills Prov:LINA ROGERS MD 09/05/17 Reported Medications Docusate Sodium (DOCUSATE SODIUM) 100 Mg Capsule, 100 MG PO BID, CAPSULE 09/07/18 Lactobacillus Combination No.4 (PROBIOTIC) 1 Each Capsule, 1 EACH PO, CAPSULE 06/25/18 Rizatriptan Benzoate (MAXALT) 10 Mg Tablet, 10 MG PO 06/25/18 Amitriptyline Hcl (AMITRIPTYLINE HCL) 10 Mg Tablet, 10 MG PO QHS, #5 TAB 05/14/18 Pregabalin (LYRICA) 50 Mg Capsule, 50 MG PO DIRECTED, CAPSULE 50 mg in am and 150 at night 04/10/18 Omeprazole (PRILOSEC) 20 Mg Capsule.dr, 1 TAB PO BID TAKE ONE TABLET BY MOUTH TWICE A DAY 10/05/13 Discontinued Reported Medications Clobetasol Propionate/Emoll (CLOBETASOL EMOLLIENT 0.05% CRM) 15 Gm Cream..g., 0 TP BID 06/25/18 Varenicline Tartrate (CHANTIX) 1 Each Tab.ds.pk, 1 EACH PO QDAY, #60 TAB 3 Refills 05/14/18 Varenicline Tartrate (CHANTIX) 0.5 Mg Tab, 0.5 MG PO use as directed, #60 TAB 0.5 mg x once a day x 3 days 0.5 mg BID x 4 days than 1 mg BID 05/14/18 Discontinued Scripts Ondansetron (ONDANSETRON ODT) 8 Mg Tab.rapdis, 8 MG PO Q12H PRN for NAUSEA/VOMITING, #15 TAB Prov:CASSIUS ESTRADA DNP, SUPERVISOR [employer] 08/11/18 NYSTATIN [id number] UNT/ML Topical Cream (NYSTATIN [id number] UNT/ML Topical Cream) 15 Gm Cream..g., 15 GM TP BID, #15 GM 2 Refills Prov:LINA ROGERS MD 03/19/18 Past Medical/Surgical History Patient has a past medical history of trigeminal neuralgia, CIDP, pneumonia, gastroparesis, elevated liver enzymes, wrist fracture, clavicle fracture, ankle fracture, back pain, alcohol use. Patient has a surgical history of hiatal hernia repair, appendectomy, cholecystectomy, hysterectomy, left rotator cuff repair, back fusion, tonsillectomy. Reviewed Nurses Notes: Yes Hx Smoking: Yes (4-5CIGS/DAY FOR 30 YRS) Smoking Status: Current: Every Day Smoker, Light Tobacco Smoker Hx Substance Use Disorder: No Hx Alcohol Use: Yes (Rare) Constitutional Vital Sign - Last 24 Hours 09/09/18 09/09/18 09/09/18 09/09/18 12:03 12:06 12:22 12:30 Temp 98.6 Pulse 116 97 Resp 20 B/P (MAP) 125/92 (103) 125/92 98/74 (82) Pulse Ox 93 91 O2 Delivery Room Air 09/09/18 09/09/18 09/09/18 09/09/18 12:52 13:00 13:30 14:00 Pulse 114 80 B/P (MAP) 116/88 (97) 115/82 (93) 119/75 (90) Pulse Ox 91 84 09/09/18 09/09/18 09/09/18 14:05 14:30 14:35 Pulse 75 108 B/P (MAP) 118/90 (99) Pulse Ox 95 72 Physical Exam General Appearance: The patient is alert, has no immediate need for airway protection and no current signs of toxicity. Respiratory: Chest is non tender, lungs are clear to auscultation. Cardiac: regular rate and rhythm Gastrointestinal: Abdomen is soft and non tender, no masses, bowel sounds are hypoactive. Musculoskeletal: Neck: Neck is supple and non tender. Extremities have full range of motion and are non tender. Skin: No rashes or lesions. DIFFERENTIAL DIAGNOSIS: After history and physical exam differential diagnosis was considered for nausea and vomiting including but not limited to gastroenteritis, gastritis, appendicitis, and medication side effect. Medical Decision Making Data Points Result Diagram: 09/09/18 1259 09/09/18 1259 Laboratory Hematology Test 09/09/18 12:59 White Blood Count 9.7 k/uL (4.5-11.0) Red Blood Count 3.77 M/uL (4.17-5.56) L Hemoglobin 12.8 g/dL (12.0-16.0) Hematocrit 37.1 % (34.0-47.0) Mean Corpuscular Volume 98.6 fL (80.0-96.0) H Mean Corpuscular Hemoglobin 34.0 pg (26.0-33.0) H Mean Corpuscular Hemoglobin Concent 34.5 g/dL (32.0-36.0) Red Cell Distribution Width 13.5 % (11.5-14.5) Platelet Count 308 K/uL (150-450) Mean Platelet Volume 6.7 fL (7.2-11.1) L Neutrophils (%) (Auto) 72.9 % (39.4-72.5) H Lymphocytes (%) (Auto) 22.4 % (17.6-49.6) Monocytes (%) (Auto) 3.4 % (4.1-12.4) L Eosinophils (%) (Auto) 0.0 % (0.4-6.7) L Basophils (%) (Auto) 1.3 % (0.3-1.4) Nucleated RBC Relative Count (auto) 0.1 /100WBC Neutrophils # (Auto) 7.1 K/uL (2.0-7.4) Lymphocytes # (Auto) 2.2 K/uL (1.3-3.6) Monocytes # (Auto) 0.3 K/uL (0.3-1.0) Eosinophils # (Auto) 0.0 K/uL (0.0-0.5) Basophils # (Auto) 0.1 K/uL (0.0-0.1) Nucleated RBC Absolute Count (auto) 0.01 K/uL Chemistry Test 09/09/18 12:59 Sodium Level 141 mmol/L (137-145) Potassium Level 3.6 mmol/L (3.5-5.0) Chloride Level 101 mmol/L (98-107) Carbon Dioxide Level 28 mmol/L (22-31) Blood Urea Nitrogen 25 mg/dl (7-18) Creatinine 0.70 mg/dl (0.52-1.04) Glomerular Filtration Rate Calc > 60.0 Random Glucose 141 mg/dl (75-110) Calcium Level 9.7 mg/dl (8.4-10.2) Total Bilirubin 0.3 mg/dl (0.2-1.3) Aspartate Amino Transf (AST/SGOT) 43 U/L (0-35) Alanine Aminotransferase (ALT/SGPT) 25 U/L (0-56) Alkaline Phosphatase 98 U/L (0-126) Total Protein 8.6 g/dl (6.3-8.2) Albumin 4.4 g/dl (3.5-5.0) Amylase Level 81 U/L (0-110) Lipase 107 U/L (23-300) Urinalysis Test 09/09/18 00:00 Urine Color Straw Urine Clarity Clear Urine pH 8.0 pH (4.8-9.5) Urine Specific [place] 1.051 Urine Protein Negative mg/dL (NEGATIVE) Urine Glucose (UA) Negative mg/dL (NEGATIVE) Urine Ketones 20 mg/dL (NEGATIVE) Urine Blood Negative (NEGATIVE) Urine Nitrite Negative (NEGATIVE) Urine Bilirubin Negative (NEGATIVE) Urine Urobilinogen Negative mg/dL (0.2-1.9) Urine Leukocyte Esterase Negative (NEGATIVE) Urine RBC 1 /HPF (0-2/HPF) Urine WBC 1 /HPF (0-5/HPF) Urine Squamous Epithelial Cells Many /LPF (</=FEW) Urine Bacteria Negative /HPF (NONE-FEW) Urine Mucus None /HPF (NONE-FEW) EKG/Imaging Imaging CT ABDOMEN PELVIS W/ CON HISTORY: nausea, vomiting, abdominal pain TECHNIQUE: Following administration of IV contrast contiguous axial images acquired through the abdomen/pelvis. Coronal and sagittal reformatting also performed.Dose Lowering Technique One of the following dose optimization techniques was utilized in the performance of this exam: Automated exposure control; adjustment of the mA an d/or kV according to the patient's size; or use of an iterative reconstruction technique. Specific details can be referenced in the facility's radiology CT exam operational policy. CONTRAST: 75 mL Isovue-370 COMPARISON: August 04, 2017 FINDINGS: Visualized lung bases: There is increased linear stranding left lung base consistent with scarring versus atelectasis. Hepatobiliary: There postsurgical changes from a cholecystectomy with mildly increased intra and extrahepatic biliary ductal dilatation. . Obstructing calculus is not seen Spleen: Negative. Adrenals: Negative. Pancreas: Negative. Kidneys ureters or bladder: Negative. Genitalia: Hysterectomy GI: Negative. Vessels/spaces/nodes: Mild to moderate atherosclerotic calcification seen throughout the abdomen and pelvis Bones/soft tissues: There are postoperative changes from L4 to S1 . There is a small umbilical hernia containing fat Additional findings: None pertinent. IMPRESSION: Increased linear stranding left lung base is consistent with scarring versus atelectasis There are postsurgical changes from a cholecystectomy with mildly increased intra and extrahepatic biliary ductal dilatation. An obstructing calculus is not identified. If biliary obstruction is of clinical concern MRCP is recommended Additional chronic findings as described Report Dictated By: Josefa Lo MD at 09/09/2018 2:07 PM Report E-Signed By: Josefa Lo MD at 09/09/2018 2:27 PM ED Course/Re-evaluation ED Course Patient was admitted to an exam room, history and physical were obtained. Differential diagnoses were considered. On examination lungs are clear, heart is regular, abdomen is soft and nontender. An IV was started, a CBC, CMP, urinalysis were obtained. A CT scan of abdomen and pelvis was done which showed no acute findings. The radiologist thought that there might be some increased dilation of the common bile duct. Labs do not seem to appreciate that. I discussed the findings with the patient. Patient did receive 2 L of normal saline here in the emergency room. She did have significant improvement in her comfort. Patient states the nausea has dramatically improved. We will go ahead and discharge her home this time. She is to take Zofran as needed for nausea. She is not able to keep her Zofran down we will go ahead and give her a prescription for Phenergan that she can take rectally. Patient verbalized understanding and agreement with plan. She states she's ready home at this time. Decision to Disposition Date: Sep 09, 2018 Decision to Disposition Time: 14:49 Depart Departure Latest Vital Signs Vital Signs Date Time Temp Pulse Resp B/P (MAP) Pulse Ox O2 Delivery O2 Flow Rate FiO2 09/09/18 14:35 108 72 09/09/18 14:30 118/90 (99) 09/09/18 12:06 98.6 20 Room Air Impression: Primary Impression: Nausea and vomiting Condition: Improved Disposition: HOME OR SELF-CARE Referrals: LINA ROGERS MD (PCP) New Scripts Promethazine Hcl (PROMETHAZINE HCL) 25 Mg Supp.rect 25 MG RC Q8H PRN for NAUSEA/VOMITING, #15 SUPP.RECT Prov: PEDRITO FERNANDES 09/09/18 Patient Instructions: Acute Nausea and Vomiting (ED) Additional Instructions: Increase fluid intake. Get plenty of rest. Follow up with your primary care provider in the next week. Return to the ER if condition worsens. Clear liquid diet for the next 24 hours to allow your stomach to rest. Take Phenergan if the nausea and vomiting aren't controlled by your Zofran. Problem Qualifiers Primary Impression: Nausea and vomiting Vomiting type: cyclical vomiting Vomiting Intractability: non-intractable Qualified Codes: G43.A0 - Cyclical vomiting, not intractable PEDRITO FERNANDES SUPERVISOR [employer] Sep 09, 2018 13:01
[2018-09-09 13:14] LABS: PLATELET COUNT, AUTOMATED 308 K/uL (150-450)
[2018-09-09] MEDS ORDERED: IOPAMIDOL 76% 100 ML INFUS BTL 100 ML ONE (13:24)
[2018-09-09 14:30] VITALS: BP 118/90
--- NOTE | 2018-09-09 14:35 | RADIOLOGY IMAGING REPORT ---
FACILITY: [facility] PATIENT NAME: Viktoria rGiffin : 1970 MR: [id number] V: [id number] EXAM DATE: ORDERING PHYSICIAN: PEDRITO FERNANDES TECHNOLOGIST: Location: [facility] Patient: Viktoria Griffin : 1970 Visit/Account:[id number] Date of Sevice: 09/09/2018 CT ABDOMEN PELVIS W/ CON HISTORY: nausea, vomiting, abdominal pain TECHNIQUE: Following administration of IV contrast contiguous axial images acquired through the abdom en/pelvis. Coronal and sagittal reformatting also performed.Dose Lowering Technique One of the following dose optimization techniques was utilized in the performance of this exam: Autom ated exposure control; adjustment of the mA and/or kV according to the patient's size; or use of an i terative reconstruction technique. Specific details can be referenced in the facility's radiology C T exam operational policy. CONTRAST: 75 mL Isovue-370 COMPARISON: August 04, 2017 FINDINGS: Visualized lung bases: There is increased linear stranding left lung base consistent with scarring v ersus atelectasis. Hepatobiliary: There postsurgical changes from a cholecystectomy with mildly increased intra and ext rahepatic biliary ductal dilatation. . Obstructing calculus is not seen Spleen: Negative. Adrenals: Negative. Pancreas: Negative. Kidneys ureters or bladder: Negative. Genitalia: Hysterectomy GI: Negative. Vessels/spaces/nodes: Mild to moderate atherosclerotic calcification seen throughout the abdomen and pelvis Bones/soft tissues: There are postoperative changes from L4 to S1 . There is a small umbilical her daniel containing fat Additional findings: None pertinent. IMPRESSION: Increased linear stranding left lung base is consistent with scarring versus atelectasis There are postsurgical changes from a cholecystectomy with mildly increased intra and extrahepatic bi liary ductal dilatation. An obstructing calculus is not identified. If biliary obstruction is of cl inical concern MRCP is recommended Additional chronic findings as described Report Dictated By: Josefa Lo MD at 09/09/2018 2:07 PM Report E-Signed By: Josefa Lo MD at 09/09/2018 2:27 PM WSN:[email or web address]
[2018-09-09] MEDS ORDERED: PROM25SU9 RC (14:53)
== END 2018-09-09 15:08 | disposition home or self-care (01) ==
LOC: ER 12:05
DX: G43.A0 Cyclical vomiting, in migraine, not intractable (principal)
CPT/HCPCS: 74177; 81001; 82150; 83690; 85025; 96360; 96361; 99284; J7030; Q9967; 82040; 82247; 82310; 82374; 82435; 82565; 82947; 84075; 84132; 84155; 84295; 84450; 84460; 84520

== ENCOUNTER → 2018-09-10 | Outpatient (CLI) | payer OTHER ==
[2016-09-19 08:38] VITALS: BMI 29.1
[~2018-09-10] MED LIST changes: +PROM25SU9 RC
--- NOTE | 2018-09-10 11:51 | RADIOLOGY IMAGING REPORT ---
FACILITY: [facility] PATIENT NAME: Viktoria Griffin : 1970 MR: [id number] V: [id number] EXAM DATE: ORDERING PHYSICIAN: CASSIUS ESTRADA TECHNOLOGIST: Location: [facility] Patient: Viktoria Griffin : 1970 Visit/Account:[id number] Date of Sevice: 09/10/[address] scan without contrast COMPARISONS: Head CT scan with and without contrast dated October 03, 2016 ADDITIONAL PERTINENT HISTORY: Facial droop TECHNIQUE: Multiple axial images were obtained from the skull base to the vertex without IV contrast . One of the following dose optimization techniques was utilized in the performance of this exam: Aut omated exposure control; adjustment of the mA and/or kV according to the patient's size; or use of an iterative reconstruction technique. Specific details can be referenced in the facility's radiology CT exam operational policy. FINDINGS: Midline shift: Negative Ventricles: Negative Brain parenchyma: Patchy hypoattenuation within the periventricular and subcortical white matter, no nspecific but likely representing small vessel ischemic change on a chronic basis. No intraparenchym al hemorrhage or mass effect. Extra-axial spaces: Mild cerebral atrophy. Intracranial vasculature: Cavernous internal carotid artery calcifications. Otherwise negative Osseous structures: Negative Paranasal sinuses and mastoid air cells: Mild mucosal thickening involving both maxillary sinuses as well as the sphenoid sinuses. Previous surgery involving the ethmoid air cells. Surrounding soft tissues and orbits: Negative IMPRESSION: 1. Age related changes as described above. 2. No evidence of acute intracranial pathology. Report Dictated By: Dre Marin MD at 09/10/2018 11:39 AM Report E-Signed By: Dre Marin MD at 09/10/2018 11:44 AM WSN:[id number]
== END ==
LOC: CT 00:52
PROVIDERS: ATTEND Nurse Practitioner Primary Care
DX: R29.810 Facial weakness (principal)
CPT/HCPCS: 70450